=== PATIENT | male | born 1960 | race Hispanic/Latino ===

== ENCOUNTER 2017-11-17 11:06 | Emergency (ER) | payer OTHER, SELFPAY ==
[2017-11-17] MEDS ORDERED: Ondansetron ODT 4 MG TAB ONE (11:54)
[2017-11-17] MEDS ORDERED: Pantoprazole 40 MG VIAL ONE (11:54)
[2017-11-17 12:05] LABS: #Eosinphils 0.1 thou/uL (0.0-0.7); #Monocytes 0.3 thou/uL (0.11-0.59); #Neutrophils 2.5 thou/uL (1.40-6.50); %Basophils 0.1 % (0.0-1.0); %Eosinophils 1.7 % (0.0-10.0); %Lymphocytes 25.3 % (21.0-51.0); %Monocytes 8.5 % (0.0-10.0); %Neutrophils 64.3 % (42.0-75.0); Hemoglobin 14.6 g/dL (14.0-18.0); Mean Corpuscular HGB CONC 33.8 g/dL (32.0-36.0); Mean Corpuscular Hemoglobin 30.9 pg (27.0-31.0); Mean Corpuscular Volume 91.3 fl (80.0-94.0); Mean Platelet Volume 7.6 fL (7.4-10.4); Platelet Count 158 thou/uL (130-400); RBC Distribution Width 11.7 % (11.5-14.5); Red Blood Cell (RBC) Count 4.73 mill/uL (4.70-6.10); White Blood Cell (WBC) Count 3.9 thou/uL (4.8-10.8)
[2017-11-17 12:27] LABS: ALT (SGPT) 33 U/L (8-55); AST (SGOT) 23 U/L (5-34); Alkaline Phosphatase 88 U/L (40-150); Anion Gap 15 mmol/L (10-20); BUN (Urea Nitrogen) 10 mg/dL (8.4-25.7); Bilirubin, Total 0.6 mg/dL (0.2-1.2); Calc. Creatinine Clearance 0 mL/min (70-130); Calcium 9.1 mg/dL (7.8-10.44); Carbon Dioxide 23 mmol/L (22-29); Chloride 99 mmol/L (98-107); Estimated GFR-MDRD Greater than 90; Globulin 3.6 g/dL (2.4-3.5); Glucose 351 mg/dL (70-105); Lipase 20 U/L (8-78); Potassium 4.1 mmol/L (3.5-5.1); Protein, Total 7.6 g/dL (6.0-8.3); Sodium 133 mmol/L (136-145)
[2017-11-17 12:31] LABS: CKMB 1.6 ng/mL (0-6.6); Troponin I Less than 0.010 ng/mL (< 0.028)
--- NOTE | 2017-11-17 12:34 | RAD ---
ACUTE ABDOMINAL SERIES: INDICATIONS: Nausea and vomiting for a few days with neck pain. FINDINGS: The lungs are clear. The cardiomediastinal silhouette is normal. The bowel gas pattern is unobstruc yudi. Cholecystectomy clips are seen within the right upper quadrant. There is scattered degenerativ e and osteoarthritic change. IMPRESSION: No acute abnormality. POS: [facility]
[2017-11-17 12:51] LABS: Bilirubin Negative (Negative); Blood, Urine Negative (Negative); Clarity CLEAR (Clear); Glucose, Urine (Dipstick) >=1000 mg/dL (Negative); Leukocyte Negative (Negative); Nitrite Negative (Negative); Protein, Urine (Dipstick) Negative (Neg-Trace); Specific Gravity, Urine 1.022 (1.002-1.036); Urobilinogen 0.2 mg/dL (0.2-1.0); pH, Urine 6.5 (5.0-9.0)
[2017-11-17] MEDS ORDERED: Insulin Regular 300 UNITS/3 ML VIAL ONE (13:07)
== END 2017-11-17 13:35 | disposition home or self-care (01) ==
LOC: ERS 11:06
DX: E11.65 Type 2 diabetes mellitus with hyperglycemia (principal); I25.2 Old myocardial infarction; E78.5 Hyperlipidemia, unspecified; I10 Essential (primary) hypertension
CPT/HCPCS: 36415; 36416; 74022; 80053; 81003; 82553; 83690; 84484; 85025; 87086; 96361; 96372; 96374; C9113; J1815; Q0162

== ENCOUNTER 2017-12-14 18:21 | Inpatient (IN) | payer SELFPAY ==
--- NOTE | 2017-12-14 18:58 | RAD ---
CHEST ONE VIEW: 12/14/17 COMPARISON: 11/28/16, 11/17/17. HISTORY: Pain. FINDINGS: Normal cardiac silhouette. The lungs and pleural spaces are clear. No pneumothorax or osseous abnorma lities. IMPRESSION: No acute cardiopulmonary process. POS: [facility]
[2017-12-14] MEDS ORDERED: Ondansetron ODT 8 MG TAB ONE (18:59)
[2017-12-14] MEDS ORDERED: Meclizine HCl 25 MG TAB ONE (18:59)
[2017-12-14 19:03] LABS: #Lymphocytes 0.8 thou/uL (1.20-3.40); #Monocytes 0.2 thou/uL (0.11-0.59); #Neutrophils 7.6 thou/uL (1.40-6.50); %Basophils 0.1 % (0.0-1.0); %Eosinophils 0.2 % (0.0-10.0); %Lymphocytes 9.5 % (21.0-51.0); %Monocytes 2.7 % (0.0-10.0); %Neutrophils 87.4 % (42.0-75.0); Mean Corpuscular HGB CONC 34.4 g/dL (32.0-36.0); Mean Corpuscular Hemoglobin 30.7 pg (27.0-31.0); Mean Corpuscular Volume 89.3 fl (80.0-94.0); Platelet Count 225 thou/uL (130-400); RBC Distribution Width 11.5 % (11.5-14.5); Red Blood Cell (RBC) Count 5.19 mill/uL (4.70-6.10); White Blood Cell (WBC) Count 8.7 thou/uL (4.8-10.8)
[2017-12-14 19:25] LABS: ALT (SGPT) 26 U/L (8-55); AST (SGOT) 18 U/L (5-34); Albumin 4.3 g/dL (3.5-5.0); Alkaline Phosphatase 104 U/L (40-150); Anion Gap 23 mmol/L (10-20); BUN (Urea Nitrogen) 9 mg/dL (8.4-25.7); Bilirubin, Total 0.7 mg/dL (0.2-1.2); CK (CPK) 58 U/L (30-200); Calc. Creatinine Clearance 0 mL/min (70-130); Calcium 9.7 mg/dL (7.8-10.44); Carbon Dioxide 21 mmol/L (22-29); Chloride 96 mmol/L (98-107); Estimated GFR-MDRD 84; Glucose 411 mg/dL (70-105); Lipase 15 U/L (8-78); Potassium 4.1 mmol/L (3.5-5.1); Protein, Total 8.3 g/dL (6.0-8.3); Sodium 136 mmol/L (136-145)
[2017-12-14 19:29] LABS: CKMB 1.5 ng/mL (0-6.6); Troponin I Less than 0.010 ng/mL (< 0.028)
[2017-12-14] MEDS ORDERED: Multivitamins, Adult 10 ML, Thiamine HCl 100 MG, Folic Acid 1 MG in Dextrose 5 %-0.45 %... IV ONE (19:45)
[2017-12-14 20:33] LABS: Base Excess-Venous -2.7 mmol/L (0 (+/- 2.5)); Bicarbonate (HCO3v) 20.4 mmol/L (1.0-85.0); CO2 Tension (PvCO2) 31.2 mmHg (41.0-51.0); Calcium, Ionized 0.99 mmol/L (1.12-1.32); Hemoglobin - Calc 17.5 g/dL (12.0-18.0); O2 Tension (PvO2) 61.9 mmHg (35.0-45.0); Potassium 4.7 mmol/L (3.4-4.7); T. Carbon Dioxide 21.4 mmol/L (1.0-85.0); pH (Venous) 7.424 (7.35-7.45); vO2 Saturation-calc 92.2 % (94-98)
[2017-12-14 20:47] LABS: Bilirubin Negative (Negative); Blood, Urine Negative (Negative); Clarity CLEAR (Clear); Glucose, Urine (Dipstick) >=1000 mg/dL (Negative); Leukocyte Negative (Negative); Nitrite Negative (Negative); Protein, Urine (Dipstick) Trace mg/dL (Neg-Trace); Specific Gravity, Urine 1.023 (1.002-1.036); Urobilinogen 0.2 mg/dL (0.2-1.0); pH, Urine 6.5 (5.0-9.0)
[2017-12-14 22:29] VITALS: BMI 29.3
[2017-12-15] MEDS ORDERED: Ondansetron HCl/PF 4 MG/2 ML Vial IVP PRN (01:55)
[2017-12-15] MEDS ORDERED: Bisacodyl 10 MG SUPP PR PRN (01:55)
[2017-12-15] MEDS ORDERED: Bisacodyl 5 MG TAB PO PRN (01:55)
[2017-12-15] MEDS ORDERED: Dextrose 5% in Water 1,000 ML IV PRN (01:55)
[2017-12-15] MEDS ORDERED: Dextrose 50% Abboject 50 ML SYRINGE SLOW IVP PRN (01:55)
[2017-12-15] MEDS ORDERED: Senokot 8.6 MG TAB PO PRN (01:55)
[2017-12-15] MEDS ORDERED: Sodium Chloride 0.9% 500 ML IV SCH (02:30)
[2017-12-15 02:48] LABS: Cardiac Risk 4.2 (Less than 4.5)
[2017-12-15 02:57] LABS: Hemoglobin A1c 10.9 % (4.0-6.0)
[2017-12-15 02:59] LABS: ALT (SGPT) 23 U/L (8-55); AST (SGOT) 15 U/L (5-34); Albumin 4.1 g/dL (3.5-5.0); Alkaline Phosphatase 96 U/L (40-150); Anion Gap 24 mmol/L (10-20); BUN (Urea Nitrogen) 11 mg/dL (8.4-25.7); Bilirubin, Total 0.6 mg/dL (0.2-1.2); Calc. Creatinine Clearance 98 mL/min (70-130); Calcium 9.5 mg/dL (7.8-10.44); Carbon Dioxide 17 mmol/L (22-29); Chloride 96 mmol/L (98-107); Estimated GFR-MDRD 78; Globulin 3.8 g/dL (2.4-3.5); Glucose 432 mg/dL (70-105); Potassium 4.1 mmol/L (3.5-5.1); Protein, Total 7.9 g/dL (6.0-8.3); Sodium 133 mmol/L (136-145)
[2017-12-15 03:04] LABS: Troponin I 0.013 ng/mL (< 0.028)
[2017-12-15] MEDS: HumaLOG 300 UNITS/3 ML VIAL SC PRN ×2 (03:27→06:05)
--- NOTE | 2017-12-15 04:56 | HP ---
CHIEF COMPLAINT: Dizziness. HISTORY OF PRESENT ILLNESS: This is a 57-year-old male with a known history of medical noncompliance for his type 2 diabetes, hypertension, history of prior coronary artery disease with 2-stent placeme nt, active alcohol use and abuse, who presents with a chief complaint of dizziness and headache. Thi s was accompanied by transient chest pain which is currently resolved. With headache and dizziness, the patient endorses also nausea and vomiting over the last 1-2 days. The patient states his last al coholic drink was yesterday morning and he was unable to drink any further secondary to nausea and vo miting. At the time of my evaluation, the patient states he still has a bit of the headache and dizziness, al though it is subjectively better than before. He wants to know if he can have a little bit more wate r to drink. REVIEW OF SYSTEMS: As per HPI. Constitutional: The patient denies any recent fevers or chills. De nies any significant weight loss or gain. HEENT: Headache with dizziness as noted above. Cardiovas cular: No overt chest pain, chest pressure or sensation of palpitations, left-sided arm numbness or tingling that is actively ongoing. The patient endorses a sensation of chest pressure that occurred earlier in the day, but which is currently resolved. Gastrointestinal: Nausea and vomiting as above . No issues with constipation or diarrhea. The patient endorses having some epigastric pain as well with nausea and vomiting episodes. Genitourinary: No new dysuria or changes in urinary frequency, quality or quantity. Musculoskeletal: No new myalgias or arthralgias. Remainder of the review of s ystems otherwise negative. PAST MEDICAL HISTORY: As per above, significant for; 1. Type 2 diabetes, medically noncompliant. 2. Hypertension, medically noncompliant. 3. History of coronary artery disease, status post PCI with stents x2, medically noncompliant. 4. Active alcohol use, 10 drinks a day. 5. History of cocaine use. PAST SURGICAL HISTORY: Status post cholecystectomy. HOME MEDICATIONS: None as the patient does not take any and he does not follow up with his primary c are provider. FAMILY HISTORY: The patient does not give any family history of cardiovascular disease or stroke or hypertension. SOCIAL HISTORY: As noted above, significant alcohol use, last drink earlier today. The patient alberto es any known history of alcohol related seizures. Prior history of cocaine use, which the patient de nies any active illicit drug use or any tobacco use at this point in time. PHYSICAL EXAMINATION: GENERAL: The patient is awake. He is conversant. He is able to converse in [place]; however, has d ifficulty with advanced terminology. I would say that he has basic conversational [place] only. HEENT: Normocephalic, atraumatic, slightly dry mucous membranes. Equal ocular motions are intact. CARDIOVASCULAR: S1, S2. Soft heart tones. EXTREMITIES: Pulses 2+ bilateral upper extremities, no pitting pedal edema. RESPIRATORY: Reasonable air movement. No wheezes, rales, or rhonchi. No conversational dyspnea. ABDOMEN: Positive bowel sounds, soft, nontender to palpation. MUSCULOSKELETAL: Moving all 4 extremities. LABORATORY DATA AND IMAGING: On 12/14/2017, chest x-ray: Impression: "No acute cardiopulmonary pro cess." WBC 8.7, hemoglobin 16.0, hematocrit 46.4, platelets 225,000. VBG: PH 7.42, pCO2 of 31.2, p O2 of 61.9. Chemistry: Sodium 136, potassium 4.1, chloride 96, bicarbonate 21, BUN 9, creatinine 0. 92, glucose 346, calcium 9.7, phosphorus 4.0, magnesium 2.0, total bilirubin 0.7, AST 18, ALT 16, alk olive phosphatase 104, creatinine kinase 58, troponin less than 0.01. Total protein 8.3, albumin 4.3 , lipase of 15. UA significant for glucose greater than 1000, ketones of 40. Beta hydroxybutyrate o f 5.35. ASSESSMENT AND PLAN: 1. Headache and dizziness in the setting of uncontrolled blood pressure in the emergency department with a high systolic over 200. Currently, systolics are in the 170s to 180s. Hydralazine p.r.n. but in the meantime, the patient has a known history of hypertension and cardiovascular disease which is untreated, so will initiate the patient on lisinopril and carvedilol. Closely monitor his blood pre ssure, reaction secondary to this regimen. 2. Type 2 diabetes, uncontrolled with hyperglycemia, question of a possibility of diabetic ketoacido sis and IV fluid bolus now. Close monitoring of the patient's respiratory status. Secondary unknown EF with a known history of cardiovascular disease, placing the patient at higher risk for pulmonary edema. Insulin regimen sliding scale with the basal dosing weight based as needed. Closely monitor if the patient fails to respond and clear his ketones and close his anion gap and will have a low thr eshold to transition to an IV insulin drip and transferred to the IMCU if needed. 3. History of alcohol use, placed on withdrawal protocol. The patient is at high risk for withdrawa l. 4. Prior history of polysubstance abuse. Check a urine drug screen as well. 5. Diet: N.p.o. for now. Okay for fluid sips of water. 6. Deep venous thrombosis prophylaxis with enoxaparin. 7. Admit the patient inpatient.
[2017-12-15] MEDS: Sodium Chloride 0.9% 1,000 ML IV SCH ×3 (05:08→21:36)
[2017-12-15] MEDS: Acetaminophen 325 MG TAB PO PRN (05:50)
[2017-12-15] MEDS: Carvedilol 3.125 MG TAB PO SCH ×2 (07:56→16:54)
[2017-12-15] MEDS: Lisinopril 5 MG TAB PO SCH (07:56)
[2017-12-15] MEDS: Enoxaparin Sodium 30 MG/0.3 ML SYRINGE SC SCH (07:56)
[2017-12-15] MEDS: Famotidine/PF 20 mg/2ml Vial SLOW IVP SCH ×2 (07:59→21:02)
[2017-12-15] MEDS ORDERED: Promethazine HCl 25 MG/ML VIAL SLOW IVP PRN (13:33)
--- NOTE | 2017-12-15 14:59 | PDOC.PN ---
- Subjective Encounter Start Date: 12/15/17 Encounter Start Time: 08:25 -: old records requested/rev Pt seen and examined, chart reviewed in its entirety, this is my first visit with this patient No F/c, no N/V/D/C, no acute events All systems reviewed and neg x as per HPI - Objective Resuscitation Status: Resuscitation Status FULL:Full Resuscitation MAR Reviewed: Yes Vital Signs & Weight: Vital Signs (12 hours) Temp Pulse Resp BP BP Pulse Ox 12/15/17 11:53 98.2 F 78 16 128/64 97 12/15/17 08:00 98.1 F 86 16 120/66 96 12/15/17 07:56 92 12/15/17 07:27 98.2 F 92 18 12/15/17 03:37 161/76 H 12/15/17 03:25 98.2 F 92 18 161/76 H 97 Weight Admit Weight 187 lb 6 oz Weight 187 lb 6 oz I&O: 12/14/17 12/15/17 12/16/17 06:59 06:59 06:59 Intake Total 854 Output Total 850 Balance 4 Result Diagrams: 12/14/17 18:52 12/15/17 02:12 Additional Labs: Accuchecks 12/15/17 12/15/17 12/15/17 12:23 09:38 06:00 POC Glucose 213 H 238 H 294 H 12/14/17 23:08 POC Glucose 410 H Radiology Reviewed by me: Yes EKG Reviewed by me: Yes Phys Exam - Physical Examination Constitutional: NAD HEENT: PERRLA, moist MMs, sclera anicteric, oral pharynx no lesions Neck: no nodes, no JVD, supple, full ROM Respiratory: no wheezing, no rales, no rhonchi, clear to auscultation bilateral Cardiovascular: RRR, no significant murmur, no rub Gastrointestinal: soft, non-tender, no distention, positive bowel sounds Musculoskeletal: no edema, pulses present Neurological: non-focal, normal sensation, moves all 4 limbs Lymphatic: no nodes Skin: no rash, normal turgor, cap refill <2 seconds Dx/Plan (1) Alcohol intoxication Status: Acute Qualifiers: Complication of substance-induced condition: uncomplicated (2) Dehydration Code(s): E86.0 - DEHYDRATION Status: Acute (3) Hyponatremia Code(s): E87.1 - HYPO-OSMOLALITY AND HYPONATREMIA Status: Acute (4) CAD (coronary artery disease) Code(s): I25.10 - ATHSCL HEART DISEASE OF [place] CORONARY ARTERY W/O ANG PCTRS Status: Chronic Qualifiers: Coronary Disease-Associated Artery/Lesion type: [place] artery [place] vs. transplanted heart: [place] heart Associated angina: without angina Qualified Code(s): I25.10 - Atherosclerotic heart disease of [place] coronary artery without angina pectoris (5) DM type 2 (diabetes mellitus, type 2) Status: Chronic Qualifiers: Diabetes mellitus senior human resources representative insulin use: without senior human resources representative use Diabetes mellitus complication status: with hyperglycemia Qualified Code(s): E11.65 - Type 2 diabetes mellitus with hyperglycemia (6) Dyslipidemia Code(s): E78.5 - HYPERLIPIDEMIA, UNSPECIFIED Status: Chronic (7) HTN (hypertension) Code(s): I10 - ESSENTIAL (PRIMARY) HYPERTENSION Status: Chronic Qualifiers: Hypertension type: essential hypertension Qualified Code(s): I10 - Essential (primary) hypertension - Plan cont current plan of care, 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
[2017-12-15] MEDS: Atorvastatin Calcium 10 MG TAB PO SCH (20:47)
[2017-12-16 04:55] LABS: #Lymphocytes 1.9 thou/uL (1.20-3.40); #Monocytes 0.4 thou/uL (0.11-0.59); #Neutrophils 3.4 thou/uL (1.40-6.50); %Basophils 0.4 % (0.0-1.0); %Eosinophils 0.8 % (0.0-10.0); %Lymphocytes 33.4 % (21.0-51.0); %Monocytes 7.2 % (0.0-10.0); %Neutrophils 58.2 % (42.0-75.0); Hemoglobin 14.1 g/dL (14.0-18.0); Mean Corpuscular Hemoglobin 30.6 pg (27.0-31.0); Mean Corpuscular Volume 90.1 fl (80.0-94.0); Mean Platelet Volume 6.9 fL (7.4-10.4); Platelet Count 184 thou/uL (130-400); RBC Distribution Width 11.6 % (11.5-14.5); Red Blood Cell (RBC) Count 4.59 mill/uL (4.70-6.10); White Blood Cell (WBC) Count 5.8 thou/uL (4.8-10.8)
[2017-12-16 05:14] LABS: ALT (SGPT) 17 U/L (8-55); AST (SGOT) 15 U/L (5-34); Albumin 3.4 g/dL (3.5-5.0); Alkaline Phosphatase 73 U/L (40-150); Anion Gap 15 mmol/L (10-20); BUN (Urea Nitrogen) 11 mg/dL (8.4-25.7); Bilirubin, Total 0.7 mg/dL (0.2-1.2); Calc. Creatinine Clearance 109 mL/min (70-130); Calcium 8.8 mg/dL (7.8-10.44); Carbon Dioxide 21 mmol/L (22-29); Chloride 105 mmol/L (98-107); Estimated GFR-MDRD 89; Globulin 3.1 g/dL (2.4-3.5); Glucose 249 mg/dL (70-105); Magnesium 1.9 mg/dL (1.6-2.6); Potassium 3.7 mmol/L (3.5-5.1); Protein, Total 6.5 g/dL (6.0-8.3); Sodium 137 mmol/L (136-145)
[2017-12-16] MEDS: Lisinopril 5 MG TAB PO SCH (08:16)
[2017-12-16] MEDS: Carvedilol 3.125 MG TAB PO SCH (08:17)
[2017-12-16] MEDS: Enoxaparin Sodium 30 MG/0.3 ML SYRINGE SC SCH (08:17)
[2017-12-16] MEDS: Famotidine/PF 20 mg/2ml Vial SLOW IVP SCH ×2 (09:56→20:05)
[2017-12-16] MEDS: Sodium Chloride 0.9% 1,000 ML IV SCH ×2 (09:57→17:13)
[2017-12-16] MEDS: hydrALAZINE 20 MG/ML VIAL SLOW IVP PRN (11:34)
[2017-12-16] MEDS: HumaLOG 300 UNITS/3 ML VIAL SC PRN ×2 (11:36→17:16)
[2017-12-16] MEDS: Acetaminophen 325 MG TAB PO PRN ×2 (11:39→18:50)
[2017-12-16] MEDS: Ondansetron ODT 4 MG TAB PO PRN ×2 (13:04→20:05)
--- NOTE | 2017-12-16 14:08 | PDOC.PN ---
- Subjective Encounter Start Date: 12/16/17 Encounter Start Time: 09:50 pT C/O HEADACE AND OR DIZZINESS THUIS am NO f/c,NO d/c, NO cp OR SOB ALLSYSTESM REVIEWED AND NEG X ABOVE. PT STATES HE DOESNT FEEL WELL ENOUGH TO GO HOME - Objective Resuscitation Status: Resuscitation Status FULL:Full Resuscitation MAR Reviewed: Yes Vital Signs & Weight: Vital Signs (12 hours) Temp Pulse Resp BP BP BP Pulse Ox 12/16/17 12:31 149/87 H 12/16/17 12:00 186/105 H 12/16/17 11:34 83 186/105 H 12/16/17 11:25 83 16 186/105 H 95 12/16/17 08:16 80 160/90 H 12/16/17 08:00 98.4 F 80 16 160/90 H 160/90 H 96 12/16/17 04:00 98.0 F 81 20 153/89 H 95 Weight Admit Weight 187 lb 6 oz Weight 187 lb 6 oz I&O: 12/15/17 12/16/17 12/17/17 06:59 06:59 06:59 Intake Total 854 Output Total 850 Balance 4 Result Diagrams: 12/16/17 04:34 12/16/17 04:34 Additional Labs: Accuchecks 12/16/17 12/16/17 12/15/17 11:26 00:31 19:47 POC Glucose 209 H 232 H 242 H 12/15/17 16:23 POC Glucose 230 H Phys Exam - Physical Examination Constitutional: NAD HEENT: PERRLA, moist MMs, sclera anicteric, oral pharynx no lesions Neck: no nodes, no JVD, supple, full ROM Respiratory: no wheezing, no rales, no rhonchi, clear to auscultation bilateral Cardiovascular: RRR, no significant murmur, no rub Gastrointestinal: soft, non-tender, no distention, positive bowel sounds Musculoskeletal: no edema, pulses present Dx/Plan (1) Alcohol intoxication Status: Resolved Qualifiers: Complication of substance-induced condition: uncomplicated (2) Dehydration Code(s): E86.0 - DEHYDRATION Status: Resolved (3) Hyponatremia Code(s): E87.1 - HYPO-OSMOLALITY AND HYPONATREMIA Status: Resolved (4) CAD (coronary artery disease) Code(s): I25.10 - ATHSCL HEART DISEASE OF [place] CORONARY ARTERY W/O ANG PCTRS Status: Chronic Qualifiers: Coronary Disease-Associated Artery/Lesion type: [place] artery [place] vs. transplanted heart: [place] heart Associated angina: without angina Qualified Code(s): I25.10 - Atherosclerotic heart disease of [place] coronary artery without angina pectoris (5) DM type 2 (diabetes mellitus, type 2) Status: Chronic Qualifiers: Diabetes mellitus detention insulin use: without termite technician use Diabetes mellitus complication status: with hyperglycemia Qualified Code(s): E11.65 - Type 2 diabetes mellitus with hyperglycemia (6) Dyslipidemia Code(s): E78.5 - HYPERLIPIDEMIA, UNSPECIFIED Status: Chronic (7) HTN (hypertension) Code(s): I10 - ESSENTIAL (PRIMARY) HYPERTENSION Status: Chronic Qualifiers: Hypertension type: essential hypertension Qualified Code(s): I10 - Essential (primary) hypertension - Plan * . INCREASE cOREG, ADD IN MECLIZINE,. SCHEDULE REGLAN FOR NOW. WATCH FOR SIGNS OF WITHDRAWL
[2017-12-16] MEDS ORDERED: Metoclopramide HCl 10 MG TAB PO SCH (14:30)
[2017-12-16] MEDS ORDERED: Carvedilol 3.125 MG TAB PO SCH (14:30)
[2017-12-16] MEDS: Meclizine HCl 25 MG TAB PO PRN ×2 (14:31→22:01)
[2017-12-16] MEDS: Carvedilol 6.25 MG TAB PO SCH (17:14)
[2017-12-16] MEDS: Metoclopramide HCl 10 MG TAB PO SCH ×2 (17:14→20:05)
[2017-12-16] MEDS: Atorvastatin Calcium 10 MG TAB PO SCH (20:05)
[2017-12-17] MEDS: Sodium Chloride 0.9% 1,000 ML IV SCH (03:14)
[2017-12-17 04:47] LABS: #Eosinphils 0.1 thou/uL (0.0-0.7); #Monocytes 0.4 thou/uL (0.11-0.59); #Neutrophils 2.6 thou/uL (1.40-6.50); %Basophils 0.5 % (0.0-1.0); %Eosinophils 1.3 % (0.0-10.0); %Lymphocytes 39.4 % (21.0-51.0); %Monocytes 7.3 % (0.0-10.0); %Neutrophils 51.5 % (42.0-75.0); Hemoglobin 13.9 g/dL (14.0-18.0); Mean Corpuscular HGB CONC 34.6 g/dL (32.0-36.0); Mean Corpuscular Hemoglobin 30.9 pg (27.0-31.0); Mean Corpuscular Volume 89.4 fl (80.0-94.0); Mean Platelet Volume 7.1 fL (7.4-10.4); Platelet Count 173 thou/uL (130-400); RBC Distribution Width 11.4 % (11.5-14.5); White Blood Cell (WBC) Count 5.1 thou/uL (4.8-10.8)
[2017-12-17 05:06] LABS: ALT (SGPT) 17 U/L (8-55); AST (SGOT) 17 U/L (5-34); Albumin 3.4 g/dL (3.5-5.0); Alkaline Phosphatase 78 U/L (40-150); Anion Gap 15 mmol/L (10-20); BUN (Urea Nitrogen) 10 mg/dL (8.4-25.7); Bilirubin, Total 0.7 mg/dL (0.2-1.2); Calc. Creatinine Clearance 110 mL/min (70-130); Calcium 8.6 mg/dL (7.8-10.44); Carbon Dioxide 21 mmol/L (22-29); Chloride 103 mmol/L (98-107); Estimated GFR-MDRD 90; Globulin 3.1 g/dL (2.4-3.5); Glucose 245 mg/dL (70-105); Magnesium 1.8 mg/dL (1.6-2.6); Potassium 3.5 mmol/L (3.5-5.1); Protein, Total 6.5 g/dL (6.0-8.3); Sodium 135 mmol/L (136-145)
[2017-12-17] MEDS: HumaLOG 300 UNITS/3 ML VIAL SC PRN ×4 (05:59→22:01)
[2017-12-17] MEDS: Metoclopramide HCl 10 MG TAB PO SCH ×2 (08:13→11:35)
[2017-12-17] MEDS: Enoxaparin Sodium 30 MG/0.3 ML SYRINGE SC SCH (08:14)
[2017-12-17] MEDS: Carvedilol 6.25 MG TAB PO SCH ×2 (08:14→16:39)
[2017-12-17] MEDS: Lisinopril 5 MG TAB PO SCH ×2 (08:14→20:10)
[2017-12-17] MEDS: Famotidine/PF 20 mg/2ml Vial SLOW IVP SCH ×2 (08:15→20:11)
[2017-12-17] MEDS: hydrALAZINE 20 MG/ML VIAL SLOW IVP PRN (11:36)
[2017-12-17] MEDS ORDERED: NIFEdipine XL 30 MG TAB PO SCH (12:15)
[2017-12-17] MEDS ORDERED: Lorazepam 1 MG TAB PO PRN (12:23)
--- NOTE | 2017-12-17 12:23 | PDOC.PN ---
- Subjective Encounter Start Date: 12/17/17 Encounter Start Time: 12:21 Patient seen and examined for DKA/HTN crisis. Gen malaise +, No CP/SOB. No overnight events - Objective Resuscitation Status: Resuscitation Status FULL:Full Resuscitation MAR Reviewed: Yes Vital Signs & Weight: Vital Signs (12 hours) Temp Pulse Resp BP BP Pulse Ox 12/17/17 11:36 89 182/105 H 12/17/17 11:00 99.4 F 89 18 182/105 H 96 12/17/17 10:12 99.5 F 87 16 96 12/17/17 08:14 87 164/90 H 12/17/17 08:00 164/90 H 12/17/17 07:52 99.5 F 87 16 164/90 H 96 12/17/17 04:02 175/97 H 12/17/17 04:00 99.0 F 84 20 175/97 H 96 Weight Admit Weight 187 lb 6 oz Weight 187 lb 6.004 oz I&O: 12/16/17 12/17/17 12/18/17 06:59 06:59 06:59 Intake Total 2002 Output Total 2930 Balance -928 Result Diagrams: 12/17/17 04:14 12/17/17 04:14 Additional Labs: Accuchecks 12/17/17 12/16/17 12/16/17 04:40 21:46 16:16 POC Glucose 218 H 218 H 281 H Phys Exam - Physical Examination Constitutional: NAD Respiratory: no wheezing, no rhonchi Cardiovascular: RRR, no rub Gastrointestinal: soft, non-tender, positive bowel sounds Musculoskeletal: no edema Neurological: moves all 4 limbs Dx/Plan (1) Hypertensive urgency Code(s): I16.0 - HYPERTENSIVE URGENCY Status: Acute Comment: BP uncontrolled. (2) DM type 2 (diabetes mellitus, type 2) Status: Chronic Qualifiers: Chronic kidney disease stage: stage 2 (mild) Comment: Does not take any med at home, uncontrolled. (3) Alcohol withdrawal Code(s): F10.239 - ALCOHOL DEPENDENCE WITH WITHDRAWAL, UNSPECIFIED Status: Acute Qualifiers: Complication of substance-induced condition: uncomplicated Qualified Code(s ): F10.230 - Alcohol dependence with withdrawal, uncomplicated Comment: uncontrolled. (4) DKA (diabetic ketoacidoses) Code(s): E13.10 - OTH DIABETES MELLITUS WITH KETOACIDOSIS WITHOUT COMA Status : Resolved Qualifiers: Diabetes mellitus type: type 2 - Plan DVT proph w/SCDs Change Coreg to 12.5 mg BID, Change Lisinopril to 5 mg BID -: Procardia XL 30 mg PO x 1 -: Add alcohol withdrawal protocol with Ativan -: Change sliding scale to mild with bedtime scale, Add Glipizide -: DC Reglan, AM labs, DC IVF Review of Systems - Review of Systems Constitutional: negative: fever, chills, sweats, weakness, malaise, other Respiratory: negative: Cough, Dry, Shortness of Breath, Hemoptysis, SOB with Excertion, Pleuritic Pain, Sputum, Wheezing Cardiovascular: negative: chest pain, palpitations, orthopnea, paroxysmal nocturnal dyspnea, edema, light headedness, other - Medications/Allergies Allergies/Adverse Reactions: Allergies Allergy/AdvReac Type Severity Reaction Status Date / Time No Known Allergies Allergy Verified 12/14/17 22:32 Medications: Current Medications Acetaminophen (Tylenol) 650 mg PO Q8H PRN PRN Reason: Pain 1-3 Last Admin: 12/16/17 18:50 Dose: 650 mg Aspirin (Aspirin Chewable) 81 mg PO DAILY [facility] Last Admin: 12/17/17 08:14 Dose: 81 mg Atorvastatin Calcium (Lipitor) 10 mg PO [facility] Last Admin: 12/16/17 20:05 Dose: 10 mg Bisacodyl (Dulcolax) 10 mg PO DAILYPRN PRN PRN Reason: Constipation Bisacodyl (Dulcolax) 10 mg NE Q24H PRN PRN Reason: Constipation Carvedilol (Coreg) 12.5 mg PO BID-[facility] Dextrose/Water (Dextrose 50%) 25 gm SLOW IVP PRN PRN PRN Reason: Hypoglycemia Famotidine (Pepcid) 20 mg SLOW IVP Q12HR [facility] Last Admin: 12/17/17 08:15 Dose: 20 mg Glipizide (Glucotrol) 5 mg PO BID-[facility] Glucagon (Glucagon) 1 mg IM PRN PRN PRN Reason: Hypoglycemia Hydralazine HCl (Apresoline) 10 mg SLOW IVP Q4H PRN PRN Reason: Hypertension Last Admin: 12/17/17 11:36 Dose: 10 mg Dextrose/Water (D5w) 1,000 mls @ 0 mls/hr IV .Q0M PRN; As Directed PRN Reason: Hypoglycemia Insulin Human Lispro (Humalog) 0 units SC .MILD SLIDING SCALE PRN PRN Reason: Mild Correctional Scale Insulin Human Lispro (Humalog) 0 units SC .BEDTIME SLIDING SC PRN PRN Reason: Bedtime Correctional Scale Lisinopril (Zestril) 5 mg PO BID [facility] Meclizine HCl (Antivert) 25 mg PO Q8H PRN PRN Reason: Dizziness Last Admin: 12/16/17 22:01 Dose: 25 mg Nifedipine (Procardia Xl) 30 mg PO ONE [facility] Stop: 12/17/17 14:00 Ondansetron HCl (Zofran) 4 mg IVP Q6H PRN PRN Reason: Nausea/Vomiting Ondansetron HCl (Zofran Odt) 4 mg PO Q6H PRN PRN Reason: Nausea/Vomiting Last Admin: 12/16/17 20:05 Dose: 4 mg Promethazine HCl (Phenergan) 12.5 mg SLOW IVP Q4H PRN PRN Reason: Nausea/Vomiting Last Admin: 12/15/17 13:37 Dose: 12.5 mg Senna (Senokot) 2 tab PO HSPRN PRN PRN Reason: Constipation Sodium Chloride (Flush - Normal Saline) 10 ml IVF Q12HR [facility] Last Admin: 12/17/17 08:15 Dose: Not Given Sodium Chloride (Flush - Normal Saline) 10 ml IVF PRN PRN PRN Reason: Saline Flush
[2017-12-17] MEDS: Ondansetron ODT 4 MG TAB PO PRN ×2 (13:00→20:10)
[2017-12-17] MEDS: glipiZIDE 5 MG TAB PO SCH (16:39)
[2017-12-17] MEDS: Meclizine HCl 25 MG TAB PO PRN (20:10)
[2017-12-17] MEDS: Atorvastatin Calcium 10 MG TAB PO SCH (20:10)
[2017-12-18 04:40] LABS: ALT (SGPT) 20 U/L (8-55); AST (SGOT) 22 U/L (5-34); Albumin 3.6 g/dL (3.5-5.0); Alkaline Phosphatase 77 U/L (40-150); Anion Gap 13 mmol/L (10-20); BUN (Urea Nitrogen) 8 mg/dL (8.4-25.7); Bilirubin, Total 0.8 mg/dL (0.2-1.2); Calc. Creatinine Clearance 121 mL/min (70-130); Calcium 9.2 mg/dL (7.8-10.44); Carbon Dioxide 23 mmol/L (22-29); Chloride 102 mmol/L (98-107); Estimated GFR-MDRD Greater than 90; Globulin 3.3 g/dL (2.4-3.5); Glucose 210 mg/dL (70-105); Magnesium 1.8 mg/dL (1.6-2.6); Phosphorus 3.8 mg/dL (2.3-4.7); Potassium 3.4 mmol/L (3.5-5.1); Protein, Total 6.9 g/dL (6.0-8.3); Sodium 135 mmol/L (136-145)
[2017-12-18] MEDS: HumaLOG 300 UNITS/3 ML VIAL SC PRN ×3 (05:39→16:23)
[2017-12-18] MEDS: glipiZIDE 5 MG TAB PO SCH ×2 (08:36→16:18)
[2017-12-18] MEDS: Carvedilol 6.25 MG TAB PO SCH ×2 (08:36→16:18)
[2017-12-18] MEDS: Lisinopril 5 MG TAB PO SCH ×2 (08:37→20:24)
[2017-12-18] MEDS: Meclizine HCl 25 MG TAB PO PRN (08:40)
[2017-12-18] MEDS ORDERED: Potassium Chloride 20 MEQ TAB PO SCH (10:15)
[2017-12-18] MEDS: Famotidine/PF 20 mg/2ml Vial SLOW IVP SCH (11:09)
[2017-12-18] MEDS ORDERED: Fioricet 325/50/40 mg Tablet PO PRN (14:33)
--- NOTE | 2017-12-18 15:31 | CT ---
CT HEAD NONCONTRAST: HISTORY: Headache. Nausea. COMPARISON: 11/28/16. FINDINGS: There is no evidence of acute intracranial hemorrhage. A large wedge-shaped area of decreased densit y within the left cerebellar hemisphere measures up to 4.9 cm diameter and is in the distribution of the left posterior inferior cerebellar artery. Diffuse cortical atrophy and chronic ischemic small-v essel disease are apparent. Visualized paranasal sinuses are well aerated. 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 It has occurred sinc e the 2017 exam. POS: [facility]
[2017-12-18] MEDS: Meclizine HCl 25 MG TAB PO SCH ×2 (16:17→20:24)
[2017-12-18] MEDS: Acetaminophen 325 MG TAB PO SCH ×2 (16:18→20:24)
--- NOTE | 2017-12-18 19:57 | PDOC.PN ---
- Subjective Encounter Start Date: 12/18/17 Encounter Start Time: 13:00 Patient seen and examined for HTN urgency/DKA. Nauseas with Vertigo - worse today - on and off for 5 days. Gets worse on movement. No focal deficits. No overnight events - Objective Resuscitation Status: Resuscitation Status FULL:Full Resuscitation MAR Reviewed: Yes Vital Signs & Weight: Vital Signs (12 hours) Temp Pulse Resp BP BP BP Pulse Ox 12/18/17 16:21 83 18 159/91 H 97 12/18/17 16:18 159/91 H 12/18/17 16:00 159/91 H 12/18/17 12:00 150/86 H 12/18/17 11:27 98.6 F 72 16 150/86 H 97 12/18/17 08:37 80 141/90 H 12/18/17 08:36 141/91 H 12/18/17 08:00 98.8 F 80 18 141/91 H 97 Weight Admit Weight 187 lb 6 oz Weight 187 lb 6.004 oz I&O: 12/17/17 12/18/17 12/19/17 06:59 06:59 06:59 Intake Total 2001 412 1200 Output Total 2930 500 Balance -928 -88 1200 Result Diagrams: 12/17/17 04:14 12/19/17 04:18 Additional Labs: Accuchecks 12/18/17 12/18/17 12/18/17 16:24 11:29 05:40 POC Glucose 211 H 318 H 196 H 12/17/17 21:16 POC Glucose 226 H Phys Exam - Physical Examination In distress due to headache/vertigo Respiratory: no wheezing, no rales, no rhonchi, clear to auscultation bilateral Cardiovascular: RRR, no rub no heaves/pulsations Gastrointestinal: soft, non-tender, no distention, positive bowel sounds Musculoskeletal: no edema Neurological: non-focal, normal sensation, moves all 4 limbs Vertigo worse on head movement Psychiatric: normal affect, A&O x 3 Dx/Plan (1) Headache Code(s): R51 - HEADACHE Status: Acute Qualifiers: Headache chronicity pattern: acute headache Intractability: intractable Comment: with Vertigo ?peripheral (2) Hypertensive urgency Code(s): I16.0 - HYPERTENSIVE URGENCY Status: Acute Comment: BP better controlled. (3) DM type 2 (diabetes mellitus, type 2) Status: Chronic Qualifiers: Chronic kidney disease stage: stage 2 (mild) Comment: Does not take any med at home, better controlled. (4) Alcohol withdrawal Code(s): F10.239 - ALCOHOL DEPENDENCE WITH WITHDRAWAL, UNSPECIFIED Status: Acute Qualifiers: Complication of substance-induced condition: uncomplicated Qualified Code(s ): F10.230 - Alcohol dependence with withdrawal, uncomplicated Comment: on Withdrawal protocol (5) DKA (diabetic ketoacidoses) Code(s): E13.10 - OTH DIABETES MELLITUS WITH KETOACIDOSIS WITHOUT COMA Status : Resolved Qualifiers: Diabetes mellitus type: type 2 - Plan DVT proph w/SCDs CT brain for persistent headache with vertigo - worse today -: Cont Coreg/Lisinopril -: Add Metformin to Glipizide -: BMP in AM -: Add Acetaminophen schedule with Meclizine Review of Systems - Review of Systems Respiratory: negative: Cough, Dry, Shortness of Breath, Hemoptysis, SOB with Excertion, Pleuritic Pain, Sputum, Wheezing Cardiovascular: negative: chest pain, palpitations, orthopnea, paroxysmal nocturnal dyspnea, edema, light headedness, other - Medications/Allergies Allergies/Adverse Reactions: Allergies Allergy/AdvReac Type Severity Reaction Status Date / Time No Known Allergies Allergy Verified 12/14/17 22:32 Medications: Current Medications Acetaminophen (Tylenol) 650 mg PO Q8H PRN PRN Reason: Pain 1-3 Last Admin: 12/16/17 18:50 Dose: 650 mg Acetaminophen (Tylenol) 650 mg PO TID [facility] Last Admin: 12/18/17 16:18 Dose: 650 mg Acetaminophen/Butalbital/Caffeine (Fioricet) 1 tab PO Q4H PRN PRN Reason: Headache Stop: 12/23/17 14:34 Aspirin (Aspirin Chewable) 81 mg PO DAILY [facility] Last Admin: 12/18/17 08:38 Dose: 81 mg Atorvastatin Calcium (Lipitor) 10 mg PO HS [facility] Last Admin: 12/17/17 20:10 Dose: 10 mg Bisacodyl (Dulcolax) 10 mg PO DAILYPRN PRN PRN Reason: Constipation Bisacodyl (Dulcolax) 10 mg [place] Q24H PRN PRN Reason: Constipation Carvedilol (Coreg) 12.5 mg PO BID-[facility] Last Admin: 12/18/17 16:18 Dose: 12.5 mg Cyanocobalamin (Vitamin B-12) 1,000 mcg PO HS [facility] Dextrose/Water (Dextrose 50%) 25 gm SLOW IVP PRN PRN PRN Reason: Hypoglycemia Famotidine (Pepcid) 20 mg PO BID [facility] Folic Acid (Folvite) 1 mg PO DAILY [facility] Glipizide (Glucotrol) 5 mg PO BID-[facility] Last Admin: 12/18/17 16:18 Dose: 5 mg Glucagon (Glucagon) 1 mg IM PRN PRN PRN Reason: Hypoglycemia Hydralazine HCl (Apresoline) 10 mg SLOW IVP Q4H PRN PRN Reason: Hypertension Last Admin: 12/17/17 11:36 Dose: 10 mg Dextrose/Water (D5w) 1,000 mls @ 0 mls/hr IV .Q0M PRN; As Directed PRN Reason: Hypoglycemia Insulin Human Lispro (Humalog) 0 units SC .MILD SLIDING SCALE PRN PRN Reason: Mild Correctional Scale Last Admin: 12/18/17 16:23 Dose: 2 unit Insulin Human Lispro (Humalog) 0 units SC .BEDTIME SLIDING SC PRN PRN Reason: Bedtime Correctional Scale Last Admin: 12/17/17 22:01 Dose: 2 unit Lisinopril (Zestril) 5 mg PO BID [facility] Lorazepam (Ativan) 1 mg PO Q4H PRN PRN Reason: ASE >=9 Meclizine HCl (Antivert) 25 mg PO Q8H PRN PRN Reason: Dizziness Last Admin: 12/18/17 08:40 Dose: 25 mg Meclizine HCl (Antivert) 25 mg PO TID [facility] Last Admin: 12/18/17 16:17 Dose: 25 mg Metformin HCl (Glucophage) 500 mg PO QAM-[facility] Multivitamins (Theragran) 1 tab PO HS [facility] Ondansetron HCl (Zofran) 4 mg IVP Q6H PRN PRN Reason: Nausea/Vomiting Ondansetron HCl (Zofran Odt) 4 mg PO Q6H PRN PRN Reason: Nausea/Vomiting Last Admin: 12/17/17 20:10 Dose: 4 mg Promethazine HCl (Phenergan) 12.5 mg SLOW IVP Q4H PRN PRN Reason: Nausea/Vomiting Last Admin: 12/15/17 13:37 Dose: 12.5 mg Pyridoxine HCl (Vitamin B 6) 50 mg PO HS [facility] Senna (Senokot) 2 tab PO HSPRN PRN PRN Reason: Constipation Sodium Chloride (Flush - Normal Saline) 10 ml IVF Q12HR [facility] Last Admin: 12/18/17 08:37 Dose: 10 ml Sodium Chloride (Flush - Normal Saline) 10 ml IVF PRN PRN PRN Reason: Saline Flush Thiamine HCl (Thiamine) 100 mg PO DAILY [facility]
[2017-12-18] MEDS: pyridOXINE 50 MG (B6) TAB PO SCH (20:23)
[2017-12-18] MEDS: Famotidine 20 MG TAB PO SCH (20:23)
[2017-12-18] MEDS: Cyanocobalamin (Vitamin B-12) 1,000 MCG TAB PO SCH (20:24)
[2017-12-18] MEDS: Atorvastatin Calcium 10 MG TAB PO SCH (20:24)
[2017-12-18] MEDS: Multivit, Therapeutic 1 TAB PO SCH (20:25)
[2017-12-19 05:12] LABS: Anion Gap 14 mmol/L (10-20); BUN (Urea Nitrogen) 12 mg/dL (8.4-25.7); Calc. Creatinine Clearance 110 mL/min (70-130); Calcium 9.5 mg/dL (7.8-10.44); Carbon Dioxide 22 mmol/L (22-29); Chloride 103 mmol/L (98-107); Estimated GFR-MDRD 90; Glucose 228 mg/dL (70-105); Potassium 3.6 mmol/L (3.5-5.1); Sodium 135 mmol/L (136-145)
[2017-12-19] MEDS: HumaLOG 300 UNITS/3 ML VIAL SC PRN ×4 (05:57→20:21)
[2017-12-19] MEDS ORDERED: metFORMIN 500 MG TAB PO SCH (08:00)
[2017-12-19] MEDS: Carvedilol 6.25 MG TAB PO SCH ×2 (08:49→16:42)
[2017-12-19] MEDS: Acetaminophen 325 MG TAB PO SCH ×3 (08:49→20:11)
[2017-12-19] MEDS: glipiZIDE 5 MG TAB PO SCH ×2 (08:49→16:42)
[2017-12-19] MEDS: Folic Acid 1 MG TAB PO SCH (08:50)
[2017-12-19] MEDS: Lisinopril 5 MG TAB PO SCH ×2 (08:50→20:12)
[2017-12-19] MEDS: Famotidine 20 MG TAB PO SCH ×2 (08:50→20:12)
[2017-12-19] MEDS: Meclizine HCl 25 MG TAB PO SCH ×3 (10:14→20:12)
[2017-12-19] MEDS ORDERED: cloNIDine 0.1 MG TAB PO PRN (13:47)
[2017-12-19] MEDS ORDERED: Amlodipine 5 MG TAB PO PRN (13:48)
[2017-12-19] MEDS: Atorvastatin Calcium 10 MG TAB PO SCH (20:12)
[2017-12-19] MEDS: pyridOXINE 50 MG (B6) TAB PO SCH (20:12)
[2017-12-19] MEDS: Multivit, Therapeutic 1 TAB PO SCH (20:12)
[2017-12-19] MEDS: Cyanocobalamin (Vitamin B-12) 1,000 MCG TAB PO SCH (20:12)
--- NOTE | 2017-12-19 22:17 | PDOC.PN ---
- Subjective Encounter Start Date: 12/19/17 Encounter Start Time: 11:00 Patient seen and examined for HTN urgency/DM2. Vertigo slightly better. No overnight events - Objective Resuscitation Status: Resuscitation Status FULL:Full Resuscitation MAR Reviewed: Yes Vital Signs & Weight: Vital Signs (12 hours) Temp Pulse Pulse Pulse Pulse Resp BP 12/19/17 20:12 148/89 H 12/19/17 16:42 144/82 H 12/19/17 16:00 98.3 F 78 18 144/82 H 12/19/17 12:11 74 71 71 12/19/17 12:00 147/92 H 12/19/17 11:36 12/19/17 11:21 97.9 F 71 18 BP BP BP BP BP BP Pulse Ox 12/19/17 20:12 12/19/17 16:42 12/19/17 16:00 144/82 H 97 12/19/17 12:11 172/99 H 152/100 H 170/94 H 12/19/17 12:00 12/19/17 11:36 127/85 132/89 12/19/17 11:21 147/92 H Pulse Ox 12/19/17 20:12 12/19/17 16:42 12/19/17 16:00 12/19/17 12:11 97 12/19/17 12:00 12/19/17 11:36 12/19/17 11:21 Weight Admit Weight 187 lb 6 oz Weight 187 lb 6.004 oz I&O: 12/18/17 12/19/17 12/20/17 06:59 06:59 06:59 Intake Total 412 1300 1140 Output Total 500 800 Balance -88 500 1140 Result Diagrams: 12/17/17 04:14 12/19/17 04:18 Additional Labs: Accuchecks 12/19/17 12/19/17 12/19/17 20:21 16:13 11:32 POC Glucose 341 H 302 H 288 H 12/19/17 04:12 POC Glucose 212 H Phys Exam - Physical Examination Constitutional: NAD Respiratory: no wheezing, no rhonchi Cardiovascular: RRR, no rub Gastrointestinal: soft, non-tender, positive bowel sounds Musculoskeletal: no edema Neurological: non-focal, normal sensation, moves all 4 limbs Vertigo on head movement Dx/Plan (1) Headache Code(s): R51 - HEADACHE Status: Acute Qualifiers: Headache chronicity pattern: acute headache Intractability: intractable Comment: with Vertigo ?peripheral (2) Hypertensive urgency Code(s): I16.0 - HYPERTENSIVE URGENCY Status: Acute Comment: BP better controlled. (3) DM type 2 (diabetes mellitus, type 2) Status: Chronic Qualifiers: Chronic kidney disease stage: stage 2 (mild) Comment: Does not take any med at home, better controlled. (4) Alcohol withdrawal Code(s): F10.239 - ALCOHOL DEPENDENCE WITH WITHDRAWAL, UNSPECIFIED Status: Acute Qualifiers: Complication of substance-induced condition: uncomplicated Qualified Code(s ): F10.230 - Alcohol dependence with withdrawal, uncomplicated Comment: on Withdrawal protocol (5) DKA (diabetic ketoacidoses) Code(s): E13.10 - OTH DIABETES MELLITUS WITH KETOACIDOSIS WITHOUT COMA Status : Resolved Qualifiers: Diabetes mellitus type: type 2 - Plan PT/OT, DVT proph w/SCDs ENT follow up as outpt -: DC later today if able to walk with PT -: Cont Coreg and Lisinopril -: Add Metformin -: Cont current meds as below Review of Systems - Review of Systems Respiratory: negative: Cough, Dry, Shortness of Breath, Hemoptysis, SOB with Excertion, Pleuritic Pain, Sputum, Wheezing Cardiovascular: negative: chest pain, palpitations, orthopnea, paroxysmal nocturnal dyspnea, edema, light headedness, other - Medications/Allergies Allergies/Adverse Reactions: Allergies Allergy/AdvReac Type Severity Reaction Status Date / Time No Known Allergies Allergy Verified 12/14/17 22:32 Medications: Current Medications Acetaminophen (Tylenol) 650 mg PO Q8H PRN PRN Reason: Pain 1-3 Last Admin: 12/16/17 18:50 Dose: 650 mg Acetaminophen (Tylenol) 650 mg PO TID [facility] Last Admin: 12/19/17 20:11 Dose: 650 mg Acetaminophen/Butalbital/Caffeine (Fioricet) 1 tab PO Q4H PRN PRN Reason: Headache Stop: 12/23/17 14:34 Amlodipine Besylate (Norvasc) 5 mg PO DAILY PRN PRN Reason: SBP Greater Than 170 Aspirin (Aspirin Chewable) 81 mg PO DAILY [facility] Last Admin: 12/19/17 08:51 Dose: 81 mg Atorvastatin Calcium (Lipitor) 10 mg PO [facility] Last Admin: 12/19/17 20:12 Dose: 10 mg Bisacodyl (Dulcolax) 10 mg PO DAILYPRN PRN PRN Reason: Constipation Bisacodyl (Dulcolax) 10 mg IA Q24H PRN PRN Reason: Constipation Carvedilol (Coreg) 12.5 mg PO BID-[facility] Last Admin: 12/19/17 16:42 Dose: 12.5 mg Clonidine (Catapres) 0.1 mg PO Q4H PRN PRN Reason: Systolic BP > 180 Cyanocobalamin (Vitamin B-12) 1,000 mcg PO [facility] Last Admin: 12/19/17 20:12 Dose: 1,000 mcg Dextrose/Water (Dextrose 50%) 25 gm SLOW IVP PRN PRN PRN Reason: Hypoglycemia Famotidine (Pepcid) 20 mg PO BID [facility] Last Admin: 12/19/17 20:12 Dose: 20 mg Folic Acid (Folvite) 1 mg PO DAILY [facility] Last Admin: 12/19/17 08:50 Dose: 1 mg Glipizide (Glucotrol) 5 mg PO BID-[facility] Last Admin: 12/19/17 16:42 Dose: 5 mg Glucagon (Glucagon) 1 mg IM PRN PRN PRN Reason: Hypoglycemia Hydralazine HCl (Apresoline) 10 mg SLOW IVP Q4H PRN PRN Reason: Hypertension Last Admin: 12/17/17 11:36 Dose: 10 mg Dextrose/Water (D5w) 1,000 mls @ 0 mls/hr IV .Q0M PRN; As Directed PRN Reason: Hypoglycemia Insulin Human Lispro (Humalog) 0 units SC .MILD SLIDING SCALE PRN PRN Reason: Mild Correctional Scale Last Admin: 12/19/17 16:43 Dose: 5 unit Insulin Human Lispro (Humalog) 0 units SC .BEDTIME SLIDING SC PRN PRN Reason: Bedtime Correctional Scale Last Admin: 12/19/17 20:21 Dose: 4 unit Insulin Human NPH (Humulin N) 10 unit SC DAILY [facility] Lisinopril (Zestril) 5 mg PO BID [facility] Last Admin: 12/19/17 20:12 Dose: 5 mg Lorazepam (Ativan) 1 mg PO Q4H PRN PRN Reason: ASE >=9 Meclizine HCl (Antivert) 25 mg PO Q8H PRN PRN Reason: Dizziness Last Admin: 12/18/17 08:40 Dose: 25 mg Meclizine HCl (Antivert) 25 mg PO TID [facility] Last Admin: 12/19/17 20:12 Dose: 25 mg Metformin HCl (Glucophage) 500 mg PO BID-[facility] Multivitamins (Theragran) 1 tab PO [facility] Last Admin: 12/19/17 20:12 Dose: 1 tab Ondansetron HCl (Zofran) 4 mg IVP Q6H PRN PRN Reason: Nausea/Vomiting Ondansetron HCl (Zofran Odt) 4 mg PO Q6H PRN PRN Reason: Nausea/Vomiting Last Admin: 12/17/17 20:10 Dose: 4 mg Promethazine HCl (Phenergan) 12.5 mg SLOW IVP Q4H PRN PRN Reason: Nausea/Vomiting Last Admin: 12/15/17 13:37 Dose: 12.5 mg Pyridoxine HCl (Vitamin B 6) 50 mg PO [facility] Last Admin: 12/19/17 20:12 Dose: 50 mg Senna (Senokot) 2 tab PO HSPRN PRN PRN Reason: Constipation Sodium Chloride (Flush - Normal Saline) 10 ml IVF Q12HR [facility] Last Admin: 12/19/17 20:13 Dose: Not Given Sodium Chloride (Flush - Normal Saline) 10 ml IVF PRN PRN PRN Reason: Saline Flush Thiamine HCl (Thiamine) 100 mg PO DAILY [facility] Last Admin: 12/19/17 08:51 Dose: 100 mg
[2017-12-20 05:09] LABS: Anion Gap 13 mmol/L (10-20); BUN (Urea Nitrogen) 12 mg/dL (8.4-25.7); Calc. Creatinine Clearance 123 mL/min (70-130); Carbon Dioxide 22 mmol/L (22-29); Chloride 105 mmol/L (98-107); Estimated GFR-MDRD Greater than 90; Glucose 228 mg/dL (70-105); Potassium 3.7 mmol/L (3.5-5.1); Sodium 136 mmol/L (136-145)
[2017-12-20] MEDS: HumaLOG 300 UNITS/3 ML VIAL SC PRN ×2 (05:55→11:10)
[2017-12-20] MEDS ORDERED: metFORMIN 500 MG TAB PO SCH (08:00)
[2017-12-20] MEDS: Carvedilol 6.25 MG TAB PO SCH (08:55)
[2017-12-20] MEDS: glipiZIDE 5 MG TAB PO SCH (08:55)
[2017-12-20] MEDS: Famotidine 20 MG TAB PO SCH (08:56)
[2017-12-20] MEDS: Folic Acid 1 MG TAB PO SCH (08:56)
[2017-12-20] MEDS: Lisinopril 5 MG TAB PO SCH (08:56)
[2017-12-20] MEDS: Acetaminophen 325 MG TAB PO SCH (08:56)
[2017-12-20] MEDS: Meclizine HCl 25 MG TAB PO SCH (08:57)
[2017-12-20] MEDS ORDERED: NPH, Human Insulin Isophane 300 UNIT/3 ML VIAL SC SCH (09:00)
[2017-12-20] MEDS ORDERED: Polyethylene Glycol 3350 17 GM Packet PO PRN (09:43)
[2017-12-20 12:05] VITALS: BP 138/91; TEMP 97.9
--- NOTE | 2017-12-21 11:28 | DIS ---
DATE OF DISCHARGE: 12/20/2017 DISCHARGE DISPOSITION: Home. FOLLOWUP: 1. Follow up with Dr. Blake in 1 week. 2. Follow up with ENT for persistent dizziness with vertigo. DISCHARGE MEDICATIONS: NPH 10 units daily, meclizine as needed, glipizide 5 mg twice a day, lisinopr il 5 mg twice a day, carvedilol 6.25 mg twice a day, Lipitor 10 mg at bedtime, aspirin 81 mg daily, Z ofran as needed, metformin 500 mg daily. Patient was seen and examined on the day of discharge, denies any new complaints. No chest pain, judy rtness of breath, palpitations reported. BRIEF HOSPITAL COURSE: Patient is a 57-year-old male with diabetes mellitus type 2, hypertension, co ronary artery disease with chronic alcoholism currently noncompliant with medications presented to [facility] with persistent dizziness as well as headache and vertigo. His workup was consistent with hypertensive urgency. His blood pressure improved after parenteral medications. His blood pressure is currently stable with carvedilol and lisinopril. For diabetes, he has been started on metformin and glipizide. Later on insulin was added. He also had mild diabetic ketoacidosis on admission with ketones of 5.35. Echocardiogram showed left ventricular ejection fraction 40%-45% with mild diastol ic dysfunction. He was extensively counseled on diabetes mellitus type 2 as well as hypertension. A lcohol cessation was emphasized. Plan of care was discussed with the patient in detail. He stated u nderstanding. Fall precaution was emphasized. Rolling walker has been arranged. His vertigo improv ed with meclizine. He was advised to follow up with ENT for persistent vertigo, which is peripheral in nature. CT scan of the brain was negative. FINAL DIAGNOSES: 1. Hypertensive urgency, resolved. 2. Diabetes mellitus, type 2 with mild diabetic ketoacidosis, resolved. 3. Chronic kidney disease stage 2. 4. Chronic alcoholism with suspected alcohol withdrawal. 5. Persistent headache, improved. 6. Peripheral vertigo. An outpatient ENT followup will be arranged. Plan of care was discussed with the patient in detail, he stated understanding. Total time coordinating the discharge of this patient was 33 minutes.
== END 2017-12-20 11:17 | disposition home or self-care (01) | DRG 304 ==
LOC: ERS 18:21 → 2SW 20:57 → OBSVTOIN 20:57 → T4-B 12-15 14:50
PROVIDERS: ADMIT Internal Medicine Infectious Disease; ATTEND Internal Medicine Infectious Disease
DX: I16.0 Hypertensive urgency (principal); E11.10 Type 2 diabetes mellitus with ketoacidosis without coma; F10.239 Alcohol dependence with withdrawal, unspecified; N18.2 Chronic kidney disease, stage 2 (mild); Z91.14 Patient's other noncompliance with medication regimen; Z79.899 Other long term (current) drug therapy; Z95.5 Presence of coronary angioplasty implant and graft; Z91.19 Patient's noncompliance with other medical treatment and regimen; R55 Syncope and collapse; I25.10 Atherosclerotic heart disease of native coronary artery without angina pectoris; E78.5 Hyperlipidemia, unspecified
CPT/HCPCS: 36415; 36416; 70450; 71045; 80048; 80053; 80061; 81003; 82010; 82330; 82553; 82803; 83036; 83690; 83735; 84100; 84484; 85025; 87086; 93005; 93306; 96365; 96366; A4216; G8978-GP-CJ; G8978-GP-CN; G8979-GP-CJ; G8979-GP-CK; J0360; J1650; J1815; J2550; J3411; J7042; Q0162; S0028

== ENCOUNTER 2018-03-13 13:31 | Observation (INO) | payer SELFPAY ==
[2018-03-13 14:08] LABS: #Basophils 0.1 thou/uL (0.0-0.2); #Eosinphils 0.1 thou/uL (0.0-0.7); #Lymphocytes 1.8 thou/uL (1.20-3.40); #Monocytes 0.3 thou/uL (0.11-0.59); #Neutrophils 3.4 thou/uL (1.40-6.50); %Lymphocytes 31.5 % (21.0-51.0); %Monocytes 5.2 % (0.0-10.0); %Neutrophils 60.2 % (42.0-75.0); Hemoglobin 14.9 g/dL (14.0-18.0); Mean Corpuscular HGB CONC 35.5 g/dL (32.0-36.0); Mean Corpuscular Hemoglobin 31.6 pg (27.0-31.0); Platelet Count 158 thou/uL (130-400); RBC Distribution Width 12.1 % (11.5-14.5); Red Blood Cell (RBC) Count 4.72 mill/uL (4.70-6.10); White Blood Cell (WBC) Count 5.6 thou/uL (4.8-10.8)
--- NOTE | 2018-03-13 14:16 | RAD ---
AP VIEW OF THE CHEST: INDICATION: History of chest pain. COMPARISON: Prior study of 12/14/17. FINDINGS: Low lung volumes accentuate the cardiac silhouette and pulmonary vasculature. No focal consolidation , pleural effusion, or pneumothorax evident. No acute osseous abnormality is evident. IMPRESSION: Low lung volumes. No definite acute cardiopulmonary abnormality. POS: [facility]
[2018-03-13 14:26] LABS: ALT (SGPT) 22 U/L (8-55); AST (SGOT) 18 U/L (5-34); Albumin 4.2 g/dL (3.5-5.0); Alkaline Phosphatase 86 U/L (40-150); Anion Gap 17 mmol/L (10-20); BUN (Urea Nitrogen) 5 mg/dL (8.4-25.7); Bilirubin, Total 0.5 mg/dL (0.2-1.2); CK (CPK) 169 U/L (30-200); Calc. Creatinine Clearance 0 mL/min (70-130); Calcium 9.5 mg/dL (7.8-10.44); Carbon Dioxide 24 mmol/L (22-29); Chloride 98 mmol/L (98-107); Estimated GFR-MDRD 90; Globulin 3.6 g/dL (2.4-3.5); Glucose 310 mg/dL (70-105); Potassium 3.9 mmol/L (3.5-5.1); Protein, Total 7.8 g/dL (6.0-8.3); Sodium 135 mmol/L (136-145)
[2018-03-13 14:30] LABS: CKMB 3.2 ng/mL (0-6.6); Troponin I Less than 0.010 ng/mL (< 0.028)
--- NOTE | 2018-03-13 14:32 | CT ---
CT OF THE BRAIN WITHOUT CONTRAST: INDICATION: History of chest pain and hypertension. COMPARISON: Prior exam dated 12/18/17. FINDINGS: No definite acute infarct, hemorrhage, or hydrocephalus is present. There is encephalomalacia involv ing the left lower portion of the cerebellar hemisphere which is stable. The skull and extracranial soft tissues appear within normal limits. IMPRESSION: No acute intracranial abnormality. Stable chronic ischemic change. POS: [facility]
[2018-03-13] MEDS ORDERED: Lorazepam 2 MG/ML VIAL ONE (14:59)
[2018-03-13 15:34] LABS: Magnesium 1.9 mg/dL (1.6-2.6); Phosphorus 2.8 mg/dL (2.3-4.7)
[2018-03-13] MEDS ORDERED: hydrALAZINE 20 MG/ML VIAL SLOW IVP PRN (15:59)
[2018-03-13] MEDS ORDERED: Labetalol HCl 100 MG/20 ML VIAL SLOW IVP PRN (15:59)
[2018-03-13] MEDS ORDERED: Insulin Regular 300 UNITS/3 ML VIAL SC PRN (16:03)
[2018-03-13] MEDS ORDERED: Dextrose 50% Abboject 50 ML SYRINGE SLOW IVP PRN (16:03)
[2018-03-13] MEDS ORDERED: Nitroglycerin 0.4 MG TAB (25 Tab Bottle) PO PRN (16:03)
[2018-03-13] MEDS ORDERED: Ondansetron ODT 4 MG TAB PO PRN (16:03)
[2018-03-13] MEDS ORDERED: Dextrose 5% in Water 1,000 ML IV PRN (16:03)
[2018-03-13] MEDS ORDERED: Calcium Carbonate 500 MG ChewTAB PO PRN (16:03)
[2018-03-13] MEDS ORDERED: Mag-Al 1200 mg/1200 mg/30 ML UDCUP PO PRN (16:03)
[2018-03-13] MEDS ORDERED: cloNIDine 0.1 MG TAB PO PRN (16:03)
[2018-03-13] MEDS ORDERED: Senokot 8.6 MG TAB PO PRN (16:03)
[2018-03-13] MEDS ORDERED: Acetaminophen 325 MG TAB PO PRN (16:03)
[2018-03-13] MEDS ORDERED: Folic Acid 1 MG TAB PO SCH (16:15)
--- NOTE | 2018-03-13 16:20 | HP ---
DATE OF ADMISSION: 03/13/2018 PRIMARY CARE PHYSICIAN: Margie Portillo. CHIEF COMPLAINT: Dizziness with vertigo and headache. HISTORY OF PRESENT ILLNESS: Patient is a 57-year-old male with medication noncompliance; ch ronic alcoholism; diabetes mellitus, type 2; and hypertension who presented to the emergency room wit h above complaints. The patient was admitted to this facility in December for similar complaints. He wa s discharged home on carvedilol, insulin, glipizide, lisinopril, aspirin, and metformin. The patient states that, over the last 2 weeks, patient has not been taking his medications. He continues to dr ink heavily. His last drink was yesterday. The patient complained of lightheadedness, dizziness with intermittent chest pain over the past few d ays. His symptoms got worse today, for which EMS was called. He felt lightheaded, dizzy; however, d enies loss of consciousness. He also complained of spinning sensation, which has been chronic. He h as not taken medications over the last 2-3 weeks. He denies any double vision, blurring of vision, f acial asymmetry, weakness, numbness of any of his extremities. No epistaxis, flank pain, or hematuri a reported. His blood pressure, when EMS picked him up, was 230/138 with a pulse rate of 116. He received 2 dose s of nitro and a nitro patch was placed. His blood pressure on ER arrival was 166/106 with pulse rat e of 110, respirations 26, temperature 98.8 with O2 saturation 95% on room air. PAST MEDICAL HISTORY: 1. Chronic alcoholism. 2. Medication noncompliance. 3. Diabetes mellitus, type 2. 4. Hypertension. 5. Coronary artery disease, status post stent placement. 6. History of drug abuse including cocaine. PAST SURGICAL HISTORY: 1. Coronary stent placement. 2. Cholecystectomy. ALLERGIES: No known drug allergies. CURRENT HOME MEDICATIONS: The patient does not remember any of his home medication. Family to get a ccurate list of his medications. FAMILY HISTORY: Negative for heart disease. SOCIAL HISTORY: As discussed above. He has prior history of cocaine abuse. He drinks alcohol heavi ly. Last drink was yesterday. No tobacco. REVIEW OF SYSTEMS: The following complete review of systems was negative, unless otherwise mentioned in the HPI or below: Constitutional: Weight loss or gain, ability to conduct usual activities. Sk in: Rash, itching. Eyes: Double vision, pain. ENT/Mouth: Nose bleeding, neck stiffness, pain, te nderness. Cardiovascular: Palpitations, dyspnea on exertion, orthopnea. Respiratory: Shortness of breath, wheezing, cough, hemoptysis, fever, or night sweats. Gastrointestinal: Poor appetite, abdo johnie pain, heartburn, nausea, vomiting, constipation, or diarrhea. Genitourinary: Urgency, frequen cy, dysuria, nocturia. Musculoskeletal: Pain, swelling. Neurologic/Psychiatric: Anxiety, depressi on. Allergy/Immunologic: Skin rash, bleeding tendency. PHYSICAL EXAMINATION: VITAL SIGNS: As discussed above. GENERAL: A 57-year-old male in no apparent distress. Continues to have dizziness. HEENT: Head, atraumatic and normocephalic. Sclerae are anicteric. Moist mucous membrane, no oral l esion. NECK: Supple, no JVD appreciated. No carotid bruit. LUNGS: Clear to auscultation bilaterally. HEART: S1 and S2 present. Regular rate and rhythm, no murmur, rubs, or gallops. ABDOMEN: Soft, nontender, bowel sounds present. EXTREMITIES: No edema or calf tenderness. NEUROLOGIC: Cranial nerves II-XII were normal on examination. Power was 5/5 in all extremities. Fi [id number] test was normal. Reflexes were equivocal. PSYCHIATRY: Alert, awake, oriented x3. SKIN: Warm and dry. LYMPH NODES: No palpable lymph nodes in the neck. PERIPHERAL VASCULAR: Radial pulses palpable bilaterally. MUSCULOSKELETAL: No joint swelling or tenderness. LABORATORY AND X-RAY FINDINGS: CBC showed WBC 5.6 with hemoglobin 14.9, hematocrit 42, platelets 158 . Alcohol level was 10. Chemistries showed sodium 135, potassium 3.9, chloride 98, bicarbonate 24, BUN 5, creatinine 0.8. Electrolytes, otherwise, were in normal range. Troponins negative. EKG, by my review, showed sinus tachycardia with nonspecific ST-T-wave changes. Chest x-ray, by my review, was negative for infiltrate. CT scan of the brain, by my review, was nega tive for acute findings. IMPRESSION AND PLAN: 1. Hypertensive urgency secondary to medication noncompliance. 2. Chronic alcoholism with last drink yesterday. 3. Persistent dizziness with vertigo, peripheral in etiology. The patient was advised to follow up with ENT last admission. However, the patient has not seen an ENT yet. 4. Diabetes mellitus, type 2. 5. Chronic kidney disease, stage 2. 6. Headache, probably secondary to uncontrolled hypertension. 7. Medication noncompliance. 8. Mild hyponatremia. PLAN: The patient will be monitored on the telemetry unit. We will start him on his home medication s along with p.r.n. antihypertensives. We will add alcohol withdrawal protocol. Patient was extensi vely counseled to be compliant with all of his medication. We will start him on insulin sliding scal e. Vital signs q.4 hourly. DISPOSITION: Probably in a.m. if his blood pressure is controlled. Plan of care was discussed with the patient in detail. He stated understanding.
[2018-03-13 16:46] VITALS: BMI 30.7
[2018-03-13] MEDS: Carvedilol 6.25 MG TAB PO SCH (17:21)
[2018-03-13] MEDS: Insulin Regular 300 UNITS/3 ML VIAL SC PRN (17:21)
[2018-03-13] MEDS ORDERED: Fluticasone Propionate Nasal Spray 16 gm Bottle NASAL SCH (20:00)
[2018-03-13] MEDS: Ondansetron PF 4 MG/2 ML Vial IVP PRN (20:17)
[2018-03-13] MEDS: Lisinopril 5 MG TAB PO SCH (20:28)
[2018-03-13] MEDS: Famotidine 20 MG TAB PO SCH (20:28)
[2018-03-13] MEDS: Docusate 100 MG CAP PO SCH (20:29)
[2018-03-13] MEDS: Lorazepam 1 MG TAB PO PRN (20:51)
[2018-03-13 22:40] LABS: Amphetamine Not Detected (NotDetected); Barbiturates Screen Not Detected (NotDetected); Benzodiazepine Screen Detected (NotDetected); Cocaine Metabolite Screen Not Detected (NotDetected); Medtox Control Line Valid? VALID (VALID); Medtox Reader # READER 4; Methadone Not Detected (NotDetected); Methamphetamine Not Detected (NotDetected); Opiate Screen Not Detected (NotDetected); Oxycodone Screen Not Detected (NotDetected); Phencyclidine (PCP) Not Detected (NotDetected); THC/Cannabinoid Screen Not Detected (NotDetected); Tricyclic Screen Not Detected (NotDetected)
[2018-03-14 04:54] LABS: Anion Gap 16 mmol/L (10-20); BUN (Urea Nitrogen) 8 mg/dL (8.4-25.7); Calc. Creatinine Clearance 121 mL/min (70-130); Calcium 9.3 mg/dL (7.8-10.44); Carbon Dioxide 21 mmol/L (22-29); Chloride 101 mmol/L (98-107); Estimated GFR-MDRD Greater than 90; Glucose 232 mg/dL (70-105); Sodium 134 mmol/L (136-145)
[2018-03-14] MEDS: Insulin Regular 300 UNITS/3 ML VIAL SC PRN (05:53)
[2018-03-14] MEDS: Ondansetron PF 4 MG/2 ML Vial IVP PRN (07:15)
[2018-03-14] MEDS ORDERED: glipiZIDE 5 MG TAB PO SCH (07:30)
[2018-03-14 08:06] VITALS: BP 142/86
[2018-03-14 08:13] VITALS: TEMP 98.8
[2018-03-14] MEDS ORDERED: Multivit, Therapeutic 1 TAB PO SCH (09:00)
[2018-03-14] MEDS ORDERED: Folic Acid 1 MG TAB PO SCH (09:00)
[2018-03-14] MEDS ORDERED: Fluticasone Propionate Nasal Spray 16 gm Bottle NASAL SCH (09:00)
[2018-03-14] MEDS ORDERED: Aspirin 81 mg Enteric Coated Tablet PO SCH (09:00)
[2018-03-14] MEDS: Carvedilol 6.25 MG TAB PO SCH (09:07)
[2018-03-14] MEDS: Lisinopril 5 MG TAB PO SCH (09:08)
[2018-03-14] MEDS: Docusate 100 MG CAP PO SCH (09:08)
[2018-03-14] MEDS: Famotidine 20 MG TAB PO SCH (09:08)
[2018-03-14] MEDS: Lorazepam 1 MG TAB PO PRN (09:10)
--- NOTE | 2018-03-14 10:19 | DIS ---
DATE OF ADMISSION: 03/13/2018 DATE OF DISCHARGE: 03/14/2018 DISCHARGE DIAGNOSES: 1. Hypertensive urgency. 2. Vertigo. 3. Diabetes mellitus. 4. Hypertension. 5. Dyslipidemia. 6. History of coronary artery disease. 7. History of alcoholism. 8. Medication noncompliance. HOSPITAL COURSE: This patient is a 57-year-old male, who has chronic blindness and chronic alcohol a buse. The patient was recently admitted to this facility with similar symptoms of dizziness and nonc ompliance with his medications. The patient had a severe elevation of his blood pressure. He was se en initially in the emergency department and subsequently admitted into observation. The patient was resumed back on his usual home medications and given coverage with sliding scale for his blood sugar s. He reported that he did have his medications at home, but he simply had not been taking them and had been drinking too much. Indicated that he was aware that his drinking was a problem and then emily nned to discontinue. PHYSICAL EXAMINATION: VITAL SIGNS: On the day of discharge, temperature 98.8, pulse 88, BP 142/86, respirations 16, 97% on room air. GENERAL APPEARANCE: The patient is age appropriate, in no distress, slightly obese, and blind. HEART: Regular rate and rhythm without murmur. LUNGS: Clear bilaterally. ABDOMEN: Soft, nontender, nondistended. EXTREMITIES: Warm and dry. LABORATORY DATA: Sodium 134, potassium 4.0, chloride 101, CO2 is 21, BUN 16, creatinine 0.82, blood sugar 232, and calcium 9.3. DISPOSITION: The patient is discharged to home. He is to remain on the diabetic diet. He is to fol low up with Dr. Blake. The patient is not fully aware of his medications in detail, and family i s not returning calls to help confirm that, but he is to resume all of his usual home medications, wh ich at last discharge included Levemir FlexPen 10 units subcutaneously q.a.m. and 5 units subcutaneou sly at bedtime, Glucophage 500 mg every day, glipizide 5 mg b.i.d., Zofran p.r.n., multivitamin 1 efra ry day, Antivert p.r.n., Zestril 5 mg b.i.d., Coreg 6.25 b.i.d., atorvastatin 10 mg at bedtime, and aspirin 81 mg p.o. daily. The patient is to return to the emergency department should he have any pr oblems prior to the time of his followup.
--- NOTE | 2018-03-18 20:52 | EKG ---
Test Reason : Blood Pressure : / mmHG Vent. Rate : 108 BPM Atrial Rate : 108 BPM P-R Int : 140 ms QRS Dur : 084 ms QT Int : 350 ms P-R-T Axes : 039 009 105 degrees QTc Int : 469 ms Sinus tachycardia Possible Left atrial enlargement Nonspecific T wave abnormality Abnormal ECG Confirmed by ANSHUL NAVA ([id number]), supervising film or videotape editor NOAM LAYTON ([id number]) on 03/18/2018 8:51:33 PM Referred By: Confirmed By:ANSHUL NAVA
== END 2018-03-14 11:25 | disposition home or self-care (01) ==
LOC: ERS 13:31 → 2SW 16:36
PROVIDERS: ADMIT Internal Medicine; ATTEND Internal Medicine
DX: I16.0 Hypertensive urgency (principal); I25.2 Old myocardial infarction; E78.5 Hyperlipidemia, unspecified; E11.22 Type 2 diabetes mellitus with diabetic chronic kidney disease; I12.9 Hypertensive chronic kidney disease with stage 1 through stage 4 chronic kidney disease, or unspecified chronic kidney disease; N18.2 Chronic kidney disease, stage 2 (mild); E87.1 Hypo-osmolality and hyponatremia; F10.20 Alcohol dependence, uncomplicated; I25.10 Atherosclerotic heart disease of native coronary artery without angina pectoris; Z91.14 Patient's other noncompliance with medication regimen; Z95.5 Presence of coronary angioplasty implant and graft
CPT/HCPCS: 36415; 36416; 70450; 71045; 80048; 80053; 80306; 80307; 82553; 83735; 84100; 84484; 85025; 93005; 94760; 96374; 96375; 96376; G0378; J1815; J2060; J2405

== ENCOUNTER 2019-06-27 20:18 | Observation (INO) | payer SELFPAY ==
[2019-06-27 20:42] LABS: #Eosinphils 0.4 thou/uL (0.0-0.7); #Monocytes 0.5 thou/uL (0.11-0.59); #Neutrophils 4.3 thou/uL (1.40-6.50); %Basophils 0.5 % (0.0-1.0); %Eosinophils 5.3 % (0.0-10.0); %Lymphocytes 28.1 % (21.0-51.0); %Monocytes 6.5 % (0.0-10.0); %Neutrophils 59.6 % (42.0-75.0); Hemoglobin 14.9 g/dL (14.0-18.0); Mean Corpuscular HGB CONC 33.9 g/dL (32.0-36.0); Mean Corpuscular Hemoglobin 30.7 pg (27.0-31.0); Mean Corpuscular Volume 90.6 fL (78.0-98.0); Mean Platelet Volume 8.1 fL (7.4-10.4); Platelet Count 194 thou/uL (130-400); RBC Distribution Width 13.7 % (11.5-14.5); Red Blood Cell (RBC) Count 4.83 mill/uL (4.70-6.10); White Blood Cell (WBC) Count 7.2 thou/uL (4.8-10.8)
[2019-06-27 21:03] LABS: ALT (SGPT) 11 U/L (8-55); AST (SGOT) 13 U/L (5-34); Albumin 4.2 g/dL (3.5-5.0); Alkaline Phosphatase 146 U/L (40-110); Anion Gap 13 mmol/L (10-20); BUN (Urea Nitrogen) 13 mg/dL (8.4-25.7); Bilirubin, Total 0.7 mg/dL (0.2-1.2); Calc. Creatinine Clearance 0 mL/min (70-130); Calcium 9.3 mg/dL (7.8-10.44); Carbon Dioxide 27 mmol/L (22-29); Chloride 101 mmol/L (98-107); Estimated GFR-MDRD 54; Globulin 3.9 g/dL (2.4-3.5); Glucose 199 mg/dL (70-105); Potassium 4.4 mmol/L (3.5-5.1); Protein, Total 8.1 g/dL (6.0-8.3); Sodium 137 mmol/L (136-145)
--- NOTE | 2019-06-27 21:12 | RAD ---
PORTABLE CHEST: 06/27/19 HISTORY: Chest pain. FINDINGS/IMPRESSION: The lungs show no infiltrate. Heart size is upper normal with mild vascular congestion. Tiny effusion s may be present. POS: [facility]
[2019-06-27] MEDS ORDERED: Pantoprazole 40 MG VIAL ONE (22:28)
[2019-06-27] MEDS ORDERED: Ondansetron PF 4 MG/2 ML Vial ONE (22:28)
[2019-06-27] MEDS ORDERED: Nitroglycerin 2% Ointment 1 INCH/1 GM Packet ONE (22:28)
[2019-06-27 23:03] LABS: Bilirubin Negative (Negative); Blood, Urine Negative (Negative); Clarity Clear (Clear); Glucose, Urine (Dipstick) Normal (Negative); Leukocyte 500 Leu/uL (Negative); Nitrite Negative (Negative); Protein, Urine (Dipstick) Negative (Neg-Trace); RBC/HPF 0-3 HPF (0-3); Squamous Epithelial None Seen HPF (0-3); Urobilinogen Normal mg/dL (Less than 2)
[2019-06-27 23:14] LABS: Bacteria/HPF Rare-Few HPF (None Seen); WBC/HPF 21-50 HPF (0-3)
[2019-06-28] MEDS ORDERED: Levofloxacin 500 mg/D5W 100 ml Premix Bag ONE (00:23)
[2019-06-28 01:27] LABS: Troponin I Less than 0.010 ng/mL (< 0.028)
[2019-06-28] MEDS ORDERED: Acetaminophen 325 MG TAB PO PRN (03:33)
[2019-06-28] MEDS ORDERED: Dextrose 5% in Water 1,000 ML IV PRN (03:33)
[2019-06-28] MEDS ORDERED: HumaLOG 300 UNITS/3 ML VIAL SC PRN (03:33)
[2019-06-28] MEDS ORDERED: HYDROcodone/Acetaminophen 5/325 mg Tablet PO PRN (03:33)
[2019-06-28] MEDS ORDERED: Dextrose 50% Abboject 50 ML SYRINGE SLOW IVP PRN (03:33)
[2019-06-28] MEDS ORDERED: hydrALAZINE 20 MG/ML VIAL SLOW IVP PRN (03:37)
[2019-06-28] MEDS ORDERED: Nitroglycerin 0.4 MG TAB (25 Tab Bottle) SL PRN (03:37)
[2019-06-28] MEDS ORDERED: Morphine 2 MG/ML SYRINGE SLOW IVP PRN (03:37)
[2019-06-28 03:57] LABS: Troponin I Less than 0.010 ng/mL (< 0.028)
--- NOTE | 2019-06-28 03:57 | HP ---
PRESENTING COMPLAINT: Chest pain, shortness of breath. HISTORY OF PRESENT ILLNESS: Corbin Valdes is a 58-year-old male with history of hypertension, diabetes mellitus, regular alcohol abuse, history of medication nonadherence in the past, who presented today because of complaint of substernal chest pain associated with shortness of breath initially on exertion, now currently at rest. The patient also admits to passing of black tarry stools since the last one week. He also admits to dysuria, but denies any fever or chills. He admits to cough, but denies any pleuritic chest pain. The patient states he has had a workup for this in the past. He states he is not currently taking any medications. He repeatedly keeps saying he was told he does not need any of his medications. However, review of the patient's home record shows the patient is supposed to be on multiple medications. He admits to still drinking alcohol every day, but he is not specific on how much he drinks. PAST MEDICAL HISTORY: Significant for hypertension, hyperlipidemia, diabetes mellitus type 2. HOME MEDICATIONS: Include: 1. Metformin. 2. Glipizide. 3. Insulin regimen. 4. Lisinopril. 5. Levemir. 6. Coreg. 7. Lipitor. 8. Aspirin. The patient states he is not taking anything. ALLERGIES: NO KNOWN DRUG ALLERGIES. FAMILY HISTORY: Significant for hypertension and diabetes. SOCIAL HISTORY: The patient admits to former tobacco use, quit over four years ago. Admits to regular alcohol intake. Denies any illicit drug use. REVIEW OF SYSTEMS: All systems reviewed x14 were negative except as mentioned above. The patient denies history of EGD or colonoscopy in the past. PHYSICAL EXAMINATION: VITAL SIGNS: Current vitals; blood pressure of 155/99, pulse of 92, respiratory rate of 18, O2 saturation was 95% on room air. Temperature afebrile. GENERAL: Obese middle-aged male, lying in bed. HEENT: Head is atraumatic, normocephalic. Pupils equal and reactive to light. Extraocular motor movement intact. NECK: No JVD. No carotid bruit. RESPIRATORY: Good air entry. No crepitations. No bibasal rhonchi. CARDIOVASCULAR: S1, S2. Rate and rhythm regular. No reproducible chest wall tenderness. ABDOMEN: Full, soft. Bowel sounds positive. No epigastric tenderness. No suprapubic fullness. RECTAL: Already done by emergency room physician with findings of guaiac positive stool and enlarged prostate. EXTREMITIES: Trace pedal edema. No calf tenderness. NEURO: The patient is alert and conversant. LABORATORY DATA: WBC 7.2, hemoglobin 14.9, platelet 194. Potassium 4.4, creatinine 1.35. AST and ALT normal. Alkaline phosphatase 146. Troponin initial 0.018, repeat of less than 0.01. BNP of 324. Urinalysis shows 21 to 50 wbc. IMPRESSION: 1. Atypical chest pain. 2. Presumed upper gastrointestinal bleed may be due to from esophageal varices. 3. Transient elevated troponin-resolved. 4. Mild congestive heart failure exacerbation. 5. Urinary tract infection. 6. Diabetes mellitus. 7. Hypertension. 8. Medication nonadherence. 9. Chronic alcohol abuse. PLAN: We will admit the patient to inpatient status. We will manage the patient for the followin. Atypical chest pain with transient troponin elevation likely due to demand mediated since absent EKG changes. We hold use of aspirin or Plavix at this time. We will consult Cardiology, but may likely need low-dose aspirin after worsening GI bleed ruled out. 2. Presumed upper GI bleed given history of alcohol abuse, may be due to esophageal or gastric ulceration bleed. We will start the patient on IV Protonix 40 q.12. We will consult GI. It is guaiac-positive stool for EGD. Continue to monitor H and H. 3. UTI, likely due to underlying BPH. We will start the patient on low-dose Flomax. We will also do antibiotics with Levaquin and follow urine culture. 4. Mild CHF exacerbation. We will start the patient on low-dose Lasix 40 mg daily. 5. Advanced directive. The patient is a full code. 6. History of chronic alcohol abuse. We will do CIWA protocol with IV Ativan p.r.n. as needed for withdrawal at this time. Total time spent in review of record, discussion with patient and evaluation, greater than 60 minutes. 7. Diabetes mellitus. We will do insulin sliding scale. We will restart glipizide. Job ID: [id number]
[2019-06-28 04:01] VITALS: BMI 33.5
[2019-06-28] MEDS ORDERED: Lorazepam 2 MG/ML VIAL SLOW IVP PRN (04:03)
[2019-06-28 04:35] LABS: #Eosinphils 0.4 thou/uL (0.0-0.7); #Monocytes 0.5 thou/uL (0.11-0.59); #Neutrophils 4.3 thou/uL (1.40-6.50); %Basophils 0.4 % (0.0-1.0); %Eosinophils 5.3 % (0.0-10.0); %Lymphocytes 27.8 % (21.0-51.0); %Monocytes 6.8 % (0.0-10.0); %Neutrophils 59.7 % (42.0-75.0); Hemoglobin 13.8 g/dL (14.0-18.0); Mean Corpuscular HGB CONC 34.1 g/dL (32.0-36.0); Mean Corpuscular Hemoglobin 30.9 pg (27.0-31.0); Mean Corpuscular Volume 90.6 fL (78.0-98.0); Platelet Count 170 thou/uL (130-400); RBC Distribution Width 13.4 % (11.5-14.5); Red Blood Cell (RBC) Count 4.46 mill/uL (4.70-6.10); White Blood Cell (WBC) Count 7.3 thou/uL (4.8-10.8)
[2019-06-28 04:59] LABS: Anion Gap 12 mmol/L (10-20); BUN (Urea Nitrogen) 11 mg/dL (8.4-25.7); Calc. Creatinine Clearance 99 mL/min (70-130); Calcium 8.7 mg/dL (7.8-10.44); Carbon Dioxide 24 mmol/L (22-29); Chloride 105 mmol/L (98-107); Estimated GFR-MDRD 69; Glucose 127 mg/dL (70-105); Potassium 4.1 mmol/L (3.5-5.1); Sodium 137 mmol/L (136-145)
[2019-06-28] MEDS: glipiZIDE 5 MG TAB PO SCH ×2 (09:57→17:05)
[2019-06-28] MEDS: Lisinopril 5 MG TAB PO SCH ×2 (09:58→20:28)
[2019-06-28] MEDS: Carvedilol 6.25 MG TAB PO SCH ×2 (09:59→17:05)
[2019-06-28] MEDS: metFORMIN 500 MG TAB PO SCH (09:59)
[2019-06-28] MEDS ORDERED: Pantoprazole 40 MG VIAL ONE (10:00)
[2019-06-28] MEDS ORDERED: Furosemide 40 MG/4 ML VIAL ONE (10:00)
[2019-06-28] MEDS: Furosemide 40 MG/4 ML VIAL SLOW IVP SCH (10:05)
[2019-06-28] MEDS: Pantoprazole 40 MG VIAL IVP SCH ×2 (10:08→20:33)
[2019-06-28] MEDS: Heparin 5,000 UNITS/ML VIAL SC SCH ×3 (12:54→20:21)
--- NOTE | 2019-06-28 13:59 | PDOC.HOSPP ---
- Subjective Subjective: Pt reports that his chest pain has resolved and his SOB has improved. Resting comfortably in bed. - Objective Vital Signs & Weight: Weight Weight 214 lb 1.102 oz Result Diagrams: 06/28/19 04:28 06/28/19 04:28 Additional Labs: Accuchecks 06/28/19 07:14 POC Glucose 142 H Hospitalist ROS - Medication Medications: Active Medications Generic Name Dose Route Start Last Admin Trade Name Freq PRN Reason Stop Dose Admin Carvedilol 6.25 mg 06/28/19 08:00 06/28/19 09:59 Coreg PO 6.25 mg BID-WM ADAMS Administration Furosemide 40 mg 06/28/19 09:00 06/28/19 10:05 Lasix SLOW IVP 40 mg DAILY ADAMS Administration Glipizide 5 mg 06/28/19 07:30 06/28/19 09:57 Glucotrol PO 5 mg BID-AC ADAMS Administration Heparin Sodium (Porcine) 5,000 units 06/28/19 09:00 06/28/19 12:54 Heparin SC Not Given TID ADAMS Lisinopril 5 mg 06/28/19 09:00 06/28/19 09:58 Zestril PO 5 mg BID ADAMS Administration Metformin HCl 500 mg 06/28/19 08:00 06/28/19 09:59 Glucophage PO 500 mg QAM-WM ADAMS Administration Pantoprazole Sodium 40 mg 06/28/19 09:00 06/28/19 10:08 Protonix IVP 40 mg Q12HR ADAMS Administration - Exam General Appearance: NAD, awake alert Heart: RRR, no murmur, no gallops, no rubs Respiratory: CTAB, no wheezes, no rales, no ronchi, normal chest expansion, no tachypnea Gastrointestinal: soft, non-tender, non-distended Extremities: no edema Hosp A/P (1) CHF (congestive heart failure), NYHA class III Code(s): I50.9 - HEART FAILURE, UNSPECIFIED Status: Acute (2) GI bleed Code(s): K92.2 - GASTROINTESTINAL HEMORRHAGE, UNSPECIFIED Status: Acute (3) Alcohol abuse Code(s): F10.10 - ALCOHOL ABUSE, UNCOMPLICATED Status: Acute (4) DM type 2 (diabetes mellitus, type 2) Status: Chronic Qualifiers: Chronic kidney disease stage: stage 2 (mild) (5) HTN (hypertension) Code(s): I10 - ESSENTIAL (PRIMARY) HYPERTENSION Status: Chronic Qualifiers: Hypertension type: essential hypertension Qualified Code(s): I10 - Essential (primary) hypertension - Plan Acute on Chronic Combined Systolic and Diastolic CHF NYHA Stage III: Will order echo. Diuresis with Lasix 40 IVP QD. Will monitor creatinine with AM run. Chest Pain and history of CAD: Relieved by nitroglycerine. Resolved now. Get lipid panel in AM run. Ordered Cardiolite stress test. GI Bleed: Started on Protonix 40 BID. H&H stable. GI consulted. Will follow their recommendations. Diabetes Mellitus: Started on metformin 500 QD and glypizide 5 BID. Sliding scale insulin. Accu-checks according to ACHS. HTN: On carvedilol 6.25 BID and lisinopril 5 QD. Alcohol Abuse: Lorazepam 2 mg prn. Suspected UTI: UA does not appear to be a UTI. Discontinue Levaquin. PUB Prophylaxis: On Protonix. DVT Prophylaxis: Contraindication to anticoagulant due to GI bleed.
[2019-06-28 16:29] LABS: Cardiac Risk 5.7 (Less than 4.5)
--- NOTE | 2019-06-28 17:27 | CON ---
DATE OF CONSULTATION: I was consulted for Mr. Alaniz in the emergency room today. Apparently, he had come in, was admitted for history of melena and heme-positive stool. He came to emergency room for chest pain, which apparently had resolved. His hemoglobin was 14.9 on admission and 13.8 at 4 this morning, we are about to see him for this year for get him an upper endoscopy today, but he was not in the room. He has been on a full liquid diet. According to the nurses, there was a tray there, all of his clothes were in the room. The patient was not going to the bathroom and he did not inform the staff, he was going for a walk. I have informed the nurse to keep him n.p.o. after midnight and then call me if there is any urgent bleeding. Otherwise, I would tentatively post him for an EGD for tomorrow and we will do a full consult before that. Review the chart, there seems to be some issues with ongoing alcohol use, possible UTI and the concern for melena or GI bleeding. Otherwise, he has been very stable. If he becomes symptomatic or becomes a more emergent issue when he returns back to his room, I have told the nurse to call me back and re-evaluate him later today. Job ID: [id number]
[2019-06-28] MEDS: Atorvastatin Calcium 10 MG TAB PO SCH (20:28)
[2019-06-29 05:33] LABS: #Eosinphils 0.4 thou/uL (0.0-0.7); #Monocytes 0.5 thou/uL (0.11-0.59); #Neutrophils 3.6 thou/uL (1.40-6.50); %Basophils 0.3 % (0.0-1.0); %Eosinophils 5.6 % (0.0-10.0); %Lymphocytes 30.6 % (21.0-51.0); %Neutrophils 55.6 % (42.0-75.0); Hemoglobin 13.5 g/dL (14.0-18.0); Mean Corpuscular HGB CONC 33.7 g/dL (32.0-36.0); Mean Corpuscular Hemoglobin 30.1 pg (27.0-31.0); Mean Corpuscular Volume 89.4 fL (78.0-98.0); Mean Platelet Volume 8.4 fL (7.4-10.4); Platelet Count 203 thou/uL (130-400); RBC Distribution Width 13.3 % (11.5-14.5); Red Blood Cell (RBC) Count 4.49 mill/uL (4.70-6.10); White Blood Cell (WBC) Count 6.5 thou/uL (4.8-10.8)
[2019-06-29 05:52] LABS: Anion Gap 12 mmol/L (10-20); BUN (Urea Nitrogen) 10 mg/dL (8.4-25.7); Calc. Creatinine Clearance 87 mL/min (70-130); Carbon Dioxide 25 mmol/L (22-29); Chloride 103 mmol/L (98-107); Estimated GFR-MDRD 68; Glucose 124 mg/dL (70-105); Potassium 3.9 mmol/L (3.5-5.1); Sodium 136 mmol/L (136-145)
[2019-06-29] MEDS: Pantoprazole 40 MG VIAL IVP SCH (08:00)
[2019-06-29] MEDS: metFORMIN 500 MG TAB PO SCH (08:01)
[2019-06-29] MEDS: Carvedilol 6.25 MG TAB PO SCH ×2 (08:01→16:50)
[2019-06-29] MEDS: glipiZIDE 5 MG TAB PO SCH ×2 (08:01→16:15)
[2019-06-29] MEDS: Furosemide 40 MG/4 ML VIAL SLOW IVP SCH (08:03)
[2019-06-29] MEDS: Lisinopril 5 MG TAB PO SCH ×2 (08:03→21:14)
[2019-06-29] MEDS ORDERED: Lidocaine 1% PF 5 ML VIAL ONE (10:51)
[2019-06-29] MEDS ORDERED: PROPOFOL 200 MG/20 ML VIAL ONE (10:51)
--- NOTE | 2019-06-29 10:59 | NM ---
EXAM: NM Cardiac Stress W EF WF PROVIDED CLINICAL HISTORY: Chest pain COMPARISON: None RADIOPHARMACEUTICAL: 31.7 millicuries technetium 99m labeled sestamibi IV stress 29.6 millicuries technetium 99m labeled sestamibi IV rest FINDINGS: There is a moderate-large area of severely diminished radiotracer accumulation involving the basal to apical inferior wall, present at both stress and rest. Attenuation corrected images demonstrate a more normal distribution of radiotracer in this region. Gated data demonstrate global hypokinesis with calculated LVEF of 31%. [<>]. Calculated TID is 1.2. IMPRESSION: 1. No scintigraphic evidence for ischemia. Fixed defect at the inferior wall compatible with attenuat ion artifact. 2. Calculated LVEF 31%.
[2019-06-29] MEDS ORDERED: Regadenoson 0.4 MG/5 ML SYRINGE ONE (14:54)
--- NOTE | 2019-06-29 17:30 | PDOC.HOSPP ---
- Subjective Subjective: Patient had stress test this morning. Subsequently was taken down for EGD. Just completed that and is still sedated. - Objective Vital Signs & Weight: Vital Signs (12 hours) Temp Pulse Resp BP BP Pulse Ox 06/29/19 11:20 98.1 F 71 14 148/83 H 95 06/29/19 08:03 75 06/29/19 07:25 98.3 F 75 18 132/80 93 L Weight Weight 192 lb 1.6 oz I&O: 06/28/19 06/29/19 06/30/19 06:59 06:59 06:59 Intake Total 2450 Output Total 300 Balance 2150 Result Diagrams: 06/29/19 05:05 06/29/19 05:05 Additional Labs: Accuchecks 06/29/19 06/28/19 10:53 20:35 POC Glucose 115 H 135 H Hospitalist ROS - Medication Medications: Active Medications Generic Name Dose Route Start Last Admin Trade Name Freq PRN Reason Stop Dose Admin Atorvastatin Calcium 10 mg 06/28/19 21:00 06/28/19 20:28 Lipitor PO 10 mg HS ADAMS Administration Carvedilol 6.25 mg 06/28/19 08:00 06/29/19 16:50 Coreg PO Not Given BID-WM ADAMS Furosemide 40 mg 06/28/19 09:00 06/29/19 08:03 Lasix SLOW IVP Not Given DAILY ADAMS Glipizide 5 mg 06/28/19 07:30 06/29/19 16:15 Glucotrol PO Not Given BID-AC ADAMS Lisinopril 5 mg 06/28/19 09:00 06/29/19 08:03 Zestril PO Not Given BID ADAMS Metformin HCl 500 mg 06/28/19 08:00 06/29/19 08:01 Glucophage PO Not Given QAM-WM ADAMS Pantoprazole Sodium 40 mg 06/28/19 09:00 06/29/19 08:00 Protonix IVP 40 mg Q12HR ADAMS Administration - Exam General - other findings: Sedated, but moving all extremities. In PACU Neck: supple, symmetric, no JVD, no thyromegaly, no lymphadenopathy, no carotid bruit Heart: RRR, no murmur, no gallops, no rubs, normal peripheral pulses Respiratory: CTAB, no wheezes, no rales, no ronchi, normal chest expansion, no tachypnea Gastrointestinal: soft Extremities: no cyanosis, no clubbing, no edema Musculoskeletal: normal tone Hosp A/P (1) CHF (congestive heart failure), NYHA class III Code(s): I50.9 - HEART FAILURE, UNSPECIFIED Status: Acute (2) GI bleed Code(s): K92.2 - GASTROINTESTINAL HEMORRHAGE, UNSPECIFIED Status: Acute (3) Alcohol abuse Code(s): F10.10 - ALCOHOL ABUSE, UNCOMPLICATED Status: Acute (4) DM type 2 (diabetes mellitus, type 2) Status: Chronic Qualifiers: Chronic kidney disease stage: stage 2 (mild) (5) HTN (hypertension) Code(s): I10 - ESSENTIAL (PRIMARY) HYPERTENSION Status: Chronic Qualifiers: Hypertension type: essential hypertension Qualified Code(s): I10 - Essential (primary) hypertension - Plan Acute on Chronic Combined Systolic and Diastolic CHF NYHA Stage III: Will order echo. Diuresis with Lasix 40 IVP QD. Will monitor creatinine with AM run. Had reduced EF on stress test. No ischemia. Chest Pain and history of CAD: Relieved by nitroglycerin. Resolved now. Get lipid panel in AM run. Cardiolite stress test negative for ischemia. GI Bleed: Started on Protonix 40 BID. H&H stable. GI consulted. Just completed EGD. Findings not reported yet, but sounds like there was an ulcer. Will follow their recommendations. Diabetes Mellitus: Started on metformin 500 QD and glypizide 5 BID. Sliding scale insulin. Accu-checks according to ACHS. HTN: On carvedilol 6.25 BID and lisinopril 5 QD. Alcohol Abuse: Lorazepam 2 mg prn. Suspected UTI: UA does not appear to be a UTI. Discontinue Levaquin. PUB Prophylaxis: On Protonix. DVT Prophylaxis: Contraindication to anticoagulant due to GI bleed. Anticipate DC in am.
[2019-06-29] MEDS: Atorvastatin Calcium 10 MG TAB PO SCH (21:14)
--- NOTE | 2019-06-29 21:36 | CON ---
DATE OF CONSULTATION: 06/29/2019 HISTORY OF PRESENT ILLNESS: Mr. Alaniz is a 58-year-old gentleman who was admitted to the hospital yesterday when he presented with complaints of chest pain and 1 week of black stools. He has a history of significant alcohol abuse. He has had previous stents about 13 years ago. His hemoglobin was 14.9 on admission, 13.8 yesterday, and 13.5 today. I was consulted yesterday, I actually went to see him, but he was not in the room. He denies any more melenic stools. He has had a stress test so far that has been negative. He denies any dysphagia, weight loss, nausea, or vomiting. He does take Advil or Aleve about 2 a day as well as aspirin daily. He denies taking any antacids. PAST MEDICAL HISTORY: Hypertension, hyperlipidemia, diabetes type 2, alcohol abuse, coronary artery disease, previous stent placement. PAST SURGICAL HISTORY: Cholecystectomy, stent placement. ALLERGIES: NONE KNOWN. MEDICATIONS: At home probably taking aspirin. Medications here: 1. Tylenol. 2. Lipitor. 3. Carvedilol. 4. Glucose. 5. Furosemide. 6. Glipizide. 7. Hydralazine. 8. Hydrocodone. 9. Insulin sliding scale. 10. Lisinopril. 11. Lorazepam. 12. Metformin. 13. Morphine. 14. Protonix 40 IV q.12. SOCIAL HISTORY: The patient drinks alcohol excessively and used to smoke. In the past, he has used cocaine; denies any recent use. PHYSICAL EXAMINATION: VITAL SIGNS: Temperature is 98, pulse 71, blood pressure 140/83. GENERAL: He is resting comfortably in distress. LUNGS: Clear. HEART: Regular rate and rhythm without clicks, rubs, or murmurs. ABDOMEN: Soft, nontender. There is no rebound. There is no guarding. EXTREMITIES: No clubbing, cyanosis, or edema. LABORATORY DATA: Hemoglobin was 14.9 on admission, it is 13.5 today; white count 6.5, platelet count 203. Sodium 136, potassium 3.9, BUN and creatinine are 10 and 1.11. Liver function tests on admission were normal with AST and ALT of 13 and 11, and alkaline phosphatase of 146. Troponin was normal. Lipase was normal. UDS was not done this admission. Alcohol level was not done this admission. ASSESSMENT: This is a gentleman who reported a week's worth of melena, came in with chest pain, which is now resolved. He has had a negative stress test. He drinks excessive amount of beer and does take a lot of NSAIDs. In the past, he has used cocaine as well, but apparently is not now. He shows no signs of withdrawal. He has had a stable hemoglobin. I have been asked by the hospitalist service to perform an EGD to make sure he does not have an ulcer before he is discharged. RECOMMENDATIONS: 1. IV PPI. 2. Plan for EGD. Risks, benefits, and possible complications of endoscopy including perforation, bleeding, reaction to medication, and aspiration were all discussed with the patient. We will proceed today. Job ID: [id number]
[2019-06-30 07:33] LABS: #Eosinphils 0.4 thou/uL (0.0-0.7); #Lymphocytes 2.1 thou/uL (1.20-3.40); #Monocytes 0.7 thou/uL (0.11-0.59); #Neutrophils 3.7 thou/uL (1.40-6.50); %Basophils 0.4 % (0.0-1.0); %Eosinophils 5.5 % (0.0-10.0); %Lymphocytes 30.2 % (21.0-51.0); %Neutrophils 53.8 % (42.0-75.0); Hemoglobin 13.8 g/dL (14.0-18.0); Mean Corpuscular HGB CONC 34.7 g/dL (32.0-36.0); Mean Corpuscular Hemoglobin 30.8 pg (27.0-31.0); Mean Corpuscular Volume 88.9 fL (78.0-98.0); Platelet Count 196 thou/uL (130-400); RBC Distribution Width 13.1 % (11.5-14.5); Red Blood Cell (RBC) Count 4.48 mill/uL (4.70-6.10); White Blood Cell (WBC) Count 6.9 thou/uL (4.8-10.8)
[2019-06-30] MEDS: Carvedilol 6.25 MG TAB PO SCH (10:19)
[2019-06-30] MEDS: glipiZIDE 5 MG TAB PO SCH (10:19)
[2019-06-30] MEDS: Lisinopril 5 MG TAB PO SCH (10:20)
[2019-06-30] MEDS: metFORMIN 500 MG TAB PO SCH (10:20)
[2019-06-30] MEDS: Furosemide 40 MG/4 ML VIAL SLOW IVP SCH (10:20)
[2019-06-30 12:12] VITALS: TEMP 98.4
[2019-06-30 14:21] LABS: Anion Gap 13 mmol/L (10-20); BUN (Urea Nitrogen) 15 mg/dL (8.4-25.7); Calc. Creatinine Clearance 79 mL/min (70-130); Calcium 9.3 mg/dL (7.8-10.44); Carbon Dioxide 24 mmol/L (22-29); Chloride 103 mmol/L (98-107); Estimated GFR-MDRD 60; Glucose 85 mg/dL (70-105); Potassium 3.9 mmol/L (3.5-5.1); Sodium 136 mmol/L (136-145)
[2019-06-30 16:35] VITALS: BP 155/86
--- NOTE | 2019-06-30 18:10 | DIS ---
DATE OF ADMISSION: 06/28/2019 DATE OF DISCHARGE: 06/30/2019 DISCHARGE DIAGNOSES: Acute on chronic combined systolic and diastolic heart failure, acute GI bleed secondary to gastritis, alcohol abuse. SECONDARY DISCHARGE DIAGNOSES: Type 2 diabetes, hypertension, CAD s/p PCI CONSULTATIONS: Dr. Zachariah Fu with Gastroenterology. PROCEDURES: Nuclear stress test and upper endoscopy. BRIEF HISTORY OF PRESENT ILLNESS: This is a 58-year-old male patient with past medical history of CAD status post stent, type 2 diabetes, hypertension, who had presented to the emergency room with substernal chest pain, shortness of breath on exertion, peripheral edema, and black tarry stools for the past 1 week. The patient states that he was following with [facility] and the last time he had seen their doctors, they told him that everything was under control and did not send him prescriptions for any of his medications. The patient states that he recently had cataract surgery done last week. Upon arrival to the ER, the patient was noted to have a blood pressure of 171/103. The patient had a normal hemoglobin. The rest of his labs were unremarkable. The patient was given transdermal nitroglycerin, IV Protonix, IV Zofran, and IV Levaquin initially in the ER and was admitted for further workup. HOSPITAL COURSE: Acute GI bleed: Patient had Hb of 13, positive FOBT. The patient was started on IV Protonix. The patient underwent an EGD on 06/30, which showed findings of mild gastritis with no ulcer. Per GI, the patient can be discharged with Protonix 40 mg daily. The patient was advised to stop taking NSAIDs. The patient states that he was taking Aleve and ibuprofen on a regular basis with no clear indication. Family member states that the patient was taking it possibly due to anxiety. The patient was advised to only take Tylenol for pain and to avoid any NSAIDs. He was told that he could take his aspirin, however, this would increase his risk of GI bleeding, but in light of his history of CAD, the benefit of aspirin probably outweighs the risk. He will be taking Protonix to prevent any ulcer development. Acute systolic heart failure: The patient had reported increasing leg swelling. The patient states that he was drinking 4-5 beers on a daily basis. The patient was given IV Lasix during his hospitalization. The patient underwent a stress test, which showed a fixed defect in the inferior wall with an EF of 31%. The patient states that he has had an IA in the past. Given the patient's mild GI bleed, he was discharged on furosemide 20 mg p.o. daily p.r.n. for edema, atorvastatin 10 mg p.o. at bedtime, and Coreg 6.25 mg p.o. b.i.d. The patient was also discharged on lisinopril 5 mg twice daily since his blood pressures were elevated at 155 systolic. Hypertension: The patient was taking lisinopril as an outpatient, but it was recently discontinued since they told him his blood pressure normal. Blood pressures here were 171 on arrival and after starting lisinopril 5 mg p.o. b.i.d, his blood pressure improved to the 150s. The patient should follow up with his PCP in a week and have this titrated as an outpatient. Type 2 diabetes: The patient states he was taking insulin as an outpatient. He had a hemoglobin A1c checked in the hospitalization, which was 7.0. He will be discharged on metformin 500 mg p.o. q.a.m. Hyperlipidemia: The patient had an LDL of 120, HDL of 30, and total cholesterol of 171. He was discharged on atorvastatin 10 mg p.o. at bedtime given his history of CAD. Anemia: The patient had a hemoglobin of 13.8/39.8. He did present with some rectal bleeding. His vitamin B12 and folate levels were normal. His ferritin was 405.3. The patient should have his anemia worked up as an outpatient with his PCP. Depression: patiebt has history of anxiety/depression. He requested to be started on SSRI, but for now will defer to PCP given that this will need follow up to monitor for suicidal ideation with new treatment. He was advised to follow with [facility] if needed. DISCHARGE PHYSICAL EXAMINATION: VITAL SIGNS: Temperature 98.4, heart rate 97, respiratory rate 18, O2 saturation 96% on room air, blood pressure 155/86. GENERAL: The patient is alert, awake, oriented x3. CVS: Regular rate and rhythm with no murmurs, rubs, or gallops. LUNGS: Clear to auscultation bilaterally. ABDOMEN: Positive bowel sounds, soft, nontender, nondistended. EXTREMITIES: There is no edema. PSYCHIATRIC: The patient denies any suicidal ideation. PERTINENT LABORATORY DATA: CBC on 06/30: hemoglobin of 13.8, hematocrit 39.8. BMP on 06/30: creatinine of 1.23. Hemoglobin A1c on 06/30: A1c is 7.0. Ferritin on 06/30, is 405.34. Vitamin B12 on 06/30, is 284. Folate on 06/30, is 10. LFTs on 06/27, are normal. Troponin I 06/27 to 06/28: 0.018, then less than 0.010 x2. UA on 06/27: shows 500 leukocyte esterase, 21-50 white blood cells. Stool occult blood on 06/27, was positive. PERTINENT IMAGING: Chest x-ray on 06/27: shows mild vascular congestion. Nuclear stress test on 06/28: shows fixed defect of the inferior wall compatible with attenuation artifact. LVEF was 31%. Echocardiogram on 06/28: shows EF 30% to 35% with diastolic dysfunction likely. Mild MR, mild TR, mildly enlarged right atrium size. DISCHARGE DISPOSITION: Home. ACTIVITY: As tolerated. DIET: Diabetic and heart healthy diet. DISCHARGE MEDICATIONS: 1. Atorvastatin 10 mg p.o. at bedtime. 2. Coreg 6.25 mg p.o. b.i.d. 3. Furosemide 20 mg p.o. daily p.r.n. 4. Gabapentin 100 mg p.o. at bedtime. 5. Lisinopril 5 mg p.o. b.i.d. 6. Metformin 500 mg p.o. q.a.m. 7. Protonix 40 mg p.o. daily. DISCHARGE INSTRUCTIONS: The patient was advised to drink no more than 2 L of fluid a day due to his acute systolic heart failure. He was advised to start taking Protonix for his gastritis and avoid spicy foods and wait 2-3 hours after eating before lying down. He was advised to avoid NSAIDs, but can take the Tylenol. He was advised to take Lasix p.r.n. for peripheral edema. He was advised to start taking metformin daily for his diabetes and resume his aspirin. The patient was also prescribed gabapentin for diabetic neuropathy. The patient to follow up with his PCP in a week and can consider following up with a trichologist. Job ID: [id number] MTDD
--- NOTE | 2019-07-01 13:17 | OP ---
DATE OF PROCEDURE: 06/29/2019 PROCEDURE PERFORMED: Esophagogastroduodenoscopy and biopsy. PREPROCEDURE DIAGNOSES: 1. History of melena. 2. History of alcohol abuse. 3. Heavy nonsteroidal anti-inflammatory drug use. 4. Chest pain with negative cardiac workup. 5. Negative cardiac stress test. POSTPROCEDURE DIAGNOSES: 1. Mild erosive gastritis in the antrum. No stigmata of high risk of bleeding. Biopsies obtained. 2. Normal duodenum. 3. Normal esophagus. RECOMMENDATIONS: Avoid NSAIDs. Avoid alcohol. Prilosec or Protonix p.o. daily for 6-8 weeks. We will sign off at this time. If I can be of any further assistance in the patient's care, please do not hesitate to contact me. We will follow up on the gastric biopsies. ANESTHESIA: TIVA. PROCEDURE IN DETAIL: After the patient was informed of the risks, benefits, possible complications of endoscopy including perforation, bleeding, reaction to medication, and aspiration, informed consent was obtained. The patient was brought to the endoscopy suite, where he was sedated in gradual fashion. Once he was comfortable, bite block was placed inside the orifice. The esophagus was normal. Stomach was normal except for erosive gastritis in the antrum. There was no active hemorrhaging. Biopsies were obtained to rule out H pylori. Retroflexed views in the stomach were normal. The duodenum was evaluated in the bulb third portion was normal. The scope was removed. The patient tolerated the procedure well. There were no complications. Job ID: [id number]
== END 2019-06-30 16:41 | disposition home or self-care (01) ==
LOC: ERS 20:18 → 2SW 06-28 00:35 → ERHOLD 06-28 00:35 → 2SW 06-28 12:48
PROVIDERS: ADMIT Internal Medicine; ATTEND Internal Medicine
PROC: 0DB68ZX Excision of Stomach, Via Natural or Artificial Opening Endoscopic, Diagnostic (ICD-10-PCS; principal; 2019-06-29)
DX: K29.51 Unspecified chronic gastritis with bleeding (principal); I13.0 Hypertensive heart and chronic kidney disease with heart failure and stage 1 through stage 4 chronic kidney disease, or unspecified chronic kidney disease; E11.22 Type 2 diabetes mellitus with diabetic chronic kidney disease; N18.2 Chronic kidney disease, stage 2 (mild); I50.43 Acute on chronic combined systolic (congestive) and diastolic (congestive) heart failure; F10.10 Alcohol abuse, uncomplicated; R07.2 Precordial pain; R79.89 Other specified abnormal findings of blood chemistry; E78.5 Hyperlipidemia, unspecified; N40.0 Benign prostatic hyperplasia without lower urinary tract symptoms; F14.11 Cocaine abuse, in remission; I25.10 Atherosclerotic heart disease of native coronary artery without angina pectoris; D64.9 Anemia, unspecified; F41.9 Anxiety disorder, unspecified; F32.9 Major depressive disorder, single episode, unspecified; Z87.891 Personal history of nicotine dependence; Z91.14 Patient's other noncompliance with medication regimen; Z79.4 Long term (current) use of insulin; Z79.82 Long term (current) use of aspirin; Z79.899 Other long term (current) drug therapy
CPT/HCPCS: 36415; 36416; 71045; 78452; 80048; 80053; 80061; 81003; 81015; 82274; 82607; 82728; 82746; 83036; 83690; 83880; 84153; 84484; 85025; 88305; 88312; 93005; 93017; 93306; 94760; 96365; 96375; 96376; A9500; C9113; G0378; J1940; J1956; J2001; J2405; J2704; J2785

== ENCOUNTER 2019-08-13 17:24 | Emergency (ER) | payer SELFPAY ==
[2019-08-13 18:07] LABS: Bilirubin Negative (Negative); Blood, Urine 3+ (Negative); Clarity Clear (Clear); Glucose, Urine (Dipstick) Greater than 1000 mg/dL (Negative); Leukocyte 75 Leu/uL (Negative); Nitrite Negative (Negative); Protein, Urine (Dipstick) 50 mg/dL (Neg-Trace); Squamous Epithelial None Seen HPF (0-3); Urobilinogen Normal mg/dL (Less than 2)
[2019-08-13 18:08] LABS: Bacteria/HPF 2+ HPF (None Seen); RBC/HPF Greater than 50 HPF (0-3)
[2019-08-13 19:48] LABS: #Eosinphils 0.2 thou/uL (0.0-0.7); #Monocytes 0.6 thou/uL (0.11-0.59); #Neutrophils 3.1 thou/uL (1.40-6.50); %Basophils 0.4 % (0.0-1.0); %Eosinophils 3.3 % (0.0-10.0); %Lymphocytes 33.3 % (21.0-51.0); %Monocytes 10.7 % (0.0-10.0); %Neutrophils 52.3 % (42.0-75.0); Hemoglobin 14.2 g/dL (14.0-18.0); Mean Corpuscular HGB CONC 33.3 g/dL (32.0-36.0); Mean Corpuscular Hemoglobin 29.3 pg (27.0-31.0); Mean Corpuscular Volume 88.1 fL (78.0-98.0); Mean Platelet Volume 8.7 fL (7.4-10.4); Platelet Count 144 thou/uL (130-400); RBC Distribution Width 12.5 % (11.5-14.5); Red Blood Cell (RBC) Count 4.84 mill/uL (4.70-6.10); White Blood Cell (WBC) Count 5.9 thou/uL (4.8-10.8)
[2019-08-13 20:06] LABS: Anion Gap 12 mmol/L (10-20); BUN (Urea Nitrogen) 16 mg/dL (8.4-25.7); Calc. Creatinine Clearance 0 mL/min (70-130); Carbon Dioxide 25 mmol/L (22-29); Chloride 98 mmol/L (98-107); Estimated GFR-MDRD 58; Glucose 396 mg/dL (70-105); Potassium 4.2 mmol/L (3.5-5.1); Sodium 131 mmol/L (136-145)
[2019-08-13] MEDS ORDERED: HumaLOG 300 UNITS/3 ML VIAL ONE (20:24)
== END 2019-08-13 21:50 | disposition home or self-care (01) ==
LOC: ERS 17:24
DX: E11.65 Type 2 diabetes mellitus with hyperglycemia (principal); R31.9 Hematuria, unspecified; I25.2 Old myocardial infarction; E78.5 Hyperlipidemia, unspecified; I10 Essential (primary) hypertension; F41.9 Anxiety disorder, unspecified; F32.9 Major depressive disorder, single episode, unspecified
CPT/HCPCS: 36415; 36416; 80048; 81003; 81015; 85025; 87077; 87086; 87186; 96360

== ENCOUNTER 2020-10-09 11:47 | Inpatient (IN) | payer OTHER, SELFPAY ==
[2020-10-09 14:51] LABS: #Basophils 0.1 thou/uL (0.0-0.2); #Eosinphils 0.1 thou/uL (0.0-0.7); #Lymphocytes 1.7 thou/uL (1.20-3.40); #Monocytes 0.6 thou/uL (0.11-0.59); #Neutrophils 3.7 thou/uL (1.40-6.50); %Eosinophils 1.2 % (0.0-10.0); %Lymphocytes 27.5 % (21.0-51.0); %Monocytes 9.6 % (0.0-10.0); %Neutrophils 60.7 % (42.0-75.0); Hemoglobin 15.3 g/dL (14.0-18.0); Mean Corpuscular HGB CONC 33.1 g/dL (32.0-36.0); Mean Corpuscular Volume 93.8 fL (78.0-98.0); Mean Platelet Volume 7.8 fL (7.4-10.4); Platelet Count 172 thou/uL (130-400); RBC Distribution Width 12.4 % (11.5-14.5); Red Blood Cell (RBC) Count 4.93 mill/uL (4.70-6.10); White Blood Cell (WBC) Count 6.1 thou/uL (4.8-10.8)
[2020-10-09] MEDS ORDERED: Aspirin Chewable 81 MG TAB ONE (16:26)
[2020-10-09] MEDS ORDERED: Lorazepam 2 MG/ML VIAL ONE (16:26)
[2020-10-09] MEDS ORDERED: Nitroglycerin 2% Ointment 1 INCH/1 GM Packet ONE (16:26)
[2020-10-09] MEDS ORDERED: Enoxaparin Sodium 40 MG/0.4 ML SYRINGE SC SCH (16:45)
[2020-10-09 16:50] LABS: Albumin 3.6 g/dL (3.4-4.8)
[2020-10-09 16:51] LABS: Chloride 99 mmol/L (98-107); Potassium 4.3 mmol/L (3.5-5.1); Sodium 133 mmol/L (136-145)
[2020-10-09 16:52] LABS: Calcium 9.2 mg/dL (7.8-10.44)
[2020-10-09 16:53] LABS: Globulin 4.5 g/dL (2.4-3.5); Glucose 97 mg/dL (80-115); Protein, Total 8.1 g/dL (5.8-8.1)
[2020-10-09] MEDS ORDERED: Lorazepam 2 MG/ML VIAL SLOW IVP PRN (16:53)
[2020-10-09 16:54] LABS: Anion Gap 18 mmol/L (10-20); Bilirubin, Total 1.8 mg/dL (0.2-1.2); Carbon Dioxide 20 mmol/L (23-31)
[2020-10-09 16:55] LABS: Alkaline Phosphatase 223 U/L (40-110)
[2020-10-09 16:56] LABS: Calc. Creatinine Clearance 0 mL/min (70-130)
[2020-10-09 16:57] LABS: BUN (Urea Nitrogen) 9 mg/dL (8.4-25.7)
[2020-10-09 16:58] LABS: ALT (SGPT) 59 U/L (8-55); AST (SGOT) 75 U/L (5-34)
[2020-10-09] MEDS ORDERED: Furosemide 40 MG/4 ML VIAL ONE (16:58)
[2020-10-09] MEDS ORDERED: Diazepam 5 MG TAB PO PRN (16:59)
[2020-10-09] MEDS ORDERED: Diazepam 5 MG TAB PO SCH (17:00)
[2020-10-09] MEDS ORDERED: Thiamine HCl 200 MG/2 ML VIAL IM SCH (17:00)
[2020-10-09] MEDS ORDERED: Dextrose 50% Abboject 50 ML SYRINGE SLOW IVP PRN (17:10)
[2020-10-09] MEDS ORDERED: Dextrose 5% in Water 1,000 ML IV PRN (17:10)
[2020-10-09 17:38] LABS: Troponin I 0.023 ng/mL (< 0.028)
[2020-10-09] MEDS: Furosemide 40 MG/4 ML VIAL SLOW IVP SCH (18:32)
[2020-10-09 19:44] LABS: Troponin I 0.026 ng/mL (< 0.028)
[2020-10-09] MEDS: Atorvastatin Calcium 10 MG TAB PO SCH (21:32)
[2020-10-09] MEDS: Lisinopril 5 MG TAB PO SCH (21:32)
[2020-10-09] MEDS: Famotidine 20 MG TAB PO SCH (21:32)
[2020-10-09 22:36] LABS: HBCM Index 0.09 S/CO (0-0.79); Hep A IgM AB Non-Reactive (NonReactive); Hep A IgM S/CO 0.19 S/CO (0-0.79); Hep B Surf Ag Non-Reactive S/CO (NonReactive); Hep C IgG Ab Non-Reactive (NonReactive); Hep C Index 0.24 S/CO (0-0.79); Hepatitis B Core IgM Abs Non-Reactive (NonReactive)
[2020-10-10 02:11] LABS: SARS-CoV-2 PCR by NAA Not Detected (NotDetected)
[2020-10-10 05:01] LABS: #Eosinphils 0.1 thou/uL (0.0-0.7); #Lymphocytes 1.1 thou/uL (1.20-3.40); #Monocytes 0.5 thou/uL (0.11-0.59); #Neutrophils 2.9 thou/uL (1.40-6.50); %Basophils 0.8 % (0.0-1.0); %Eosinophils 1.5 % (0.0-10.0); %Lymphocytes 23.3 % (21.0-51.0); %Neutrophils 63.5 % (42.0-75.0); Hemoglobin 13.6 g/dL (14.0-18.0); Mean Corpuscular HGB CONC 31.7 g/dL (32.0-36.0); Mean Corpuscular Hemoglobin 29.6 pg (27.0-31.0); Mean Corpuscular Volume 93.4 fL (78.0-98.0); Mean Platelet Volume 7.9 fL (7.4-10.4); Platelet Count 162 thou/uL (130-400); RBC Distribution Width 12.4 % (11.5-14.5); Red Blood Cell (RBC) Count 4.59 mill/uL (4.70-6.10); White Blood Cell (WBC) Count 4.6 thou/uL (4.8-10.8)
[2020-10-10 05:11] LABS: Hemoglobin A1c 6.2 % (4.0-6.0)
[2020-10-10] MEDS: Furosemide 40 MG/4 ML VIAL SLOW IVP SCH ×2 (05:13→17:00)
[2020-10-10 05:27] LABS: ALT (SGPT) 41 U/L (8-55); AST (SGOT) 40 U/L (5-34); Albumin 3.1 g/dL (3.4-4.8); Alkaline Phosphatase 190 U/L (40-110); Anion Gap 15 mmol/L (10-20); BUN (Urea Nitrogen) 16 mg/dL (8.4-25.7); Bilirubin, Total 1.8 mg/dL (0.2-1.2); Calc. Creatinine Clearance 97 mL/min (70-130); Calcium 8.8 mg/dL (7.8-10.44); Carbon Dioxide 23 mmol/L (23-31); Chloride 99 mmol/L (98-107); Cholesterol 139 mg/dl (< 200 Desired); Globulin 3.6 g/dL (2.4-3.5); Glucose 143 mg/dL (80-115); HDL Cholesterol 35 mg/dL (>60 Neg Risk); LDL Cholesterol, Calculated 83 mg/dL; Magnesium 1.7 mg/dL (1.6-2.6); Potassium 3.5 mmol/L (3.5-5.1); Protein, Total 6.7 g/dL (5.8-8.1); Sodium 133 mmol/L (136-145); Triglycerides 107 mg/dL (Less than 150)
[2020-10-10] MEDS ORDERED: Carvedilol 6.25 MG TAB PO SCH (08:00)
[2020-10-10] MEDS: Aspirin Chewable 81 MG TAB PO SCH (08:20)
[2020-10-10] MEDS: Folic Acid 1 MG TAB PO SCH (08:20)
[2020-10-10] MEDS: Magnesium Oxide 400 MG TAB PO SCH (08:20)
[2020-10-10] MEDS: Famotidine 20 MG TAB PO SCH ×2 (08:20→20:29)
[2020-10-10] MEDS: Multivitamin W/ Minerals 1 TAB PO SCH (08:20)
[2020-10-10] MEDS: Enoxaparin Sodium 40 MG/0.4 ML SYRINGE SC SCH (08:20)
[2020-10-10] MEDS: Lisinopril 5 MG TAB PO SCH ×2 (08:21→20:28)
[2020-10-10] MEDS: Thiamine 100 MG TAB PO SCH (08:21)
[2020-10-10] MEDS: Diazepam 5 MG TAB PO PRN ×2 (12:12→20:29)
[2020-10-10] MEDS: Carvedilol 6.25 MG TAB PO SCH (17:00)
[2020-10-10] MEDS: Atorvastatin Calcium 10 MG TAB PO SCH (20:29)
[2020-10-11] MEDS: Furosemide 40 MG/4 ML VIAL SLOW IVP SCH ×2 (05:29→17:47)
[2020-10-11] MEDS: Carvedilol 6.25 MG TAB PO SCH ×2 (08:58→17:47)
[2020-10-11] MEDS: Folic Acid 1 MG TAB PO SCH (08:59)
[2020-10-11] MEDS: Famotidine 20 MG TAB PO SCH ×2 (08:59→20:33)
[2020-10-11] MEDS: Magnesium Oxide 400 MG TAB PO SCH (08:59)
[2020-10-11] MEDS: Multivitamin W/ Minerals 1 TAB PO SCH (08:59)
[2020-10-11] MEDS: Aspirin Chewable 81 MG TAB PO SCH (09:00)
[2020-10-11] MEDS: Thiamine 100 MG TAB PO SCH (09:00)
[2020-10-11] MEDS: Lisinopril 5 MG TAB PO SCH ×2 (09:00→20:33)
[2020-10-11] MEDS: Enoxaparin Sodium 40 MG/0.4 ML SYRINGE SC SCH (09:00)
[2020-10-11] MEDS: Diazepam 5 MG TAB PO PRN ×2 (12:45→20:34)
[2020-10-11] MEDS: Atorvastatin Calcium 10 MG TAB PO SCH (20:33)
[2020-10-12] MEDS: Furosemide 40 MG/4 ML VIAL SLOW IVP SCH ×2 (06:05→17:38)
[2020-10-12] MEDS: HumaLOG 300 UNITS/3 ML VIAL SC PRN ×2 (06:09→17:40)
[2020-10-12 08:46] LABS: #Eosinphils 0.1 thou/uL (0.0-0.7); #Lymphocytes 1.2 thou/uL (1.20-3.40); #Monocytes 0.6 thou/uL (0.11-0.59); #Neutrophils 2.3 thou/uL (1.40-6.50); %Basophils 0.6 % (0.0-1.0); %Eosinophils 2.1 % (0.0-10.0); %Lymphocytes 28.8 % (21.0-51.0); %Monocytes 13.2 % (0.0-10.0); %Neutrophils 55.3 % (42.0-75.0); Hemoglobin 13.2 g/dL (14.0-18.0); Mean Corpuscular HGB CONC 33.1 g/dL (32.0-36.0); Mean Corpuscular Hemoglobin 31.2 pg (27.0-31.0); Mean Corpuscular Volume 94.4 fL (78.0-98.0); Mean Platelet Volume 7.6 fL (7.4-10.4); Platelet Count 136 thou/uL (130-400); RBC Distribution Width 12.3 % (11.5-14.5); Red Blood Cell (RBC) Count 4.24 mill/uL (4.70-6.10); White Blood Cell (WBC) Count 4.2 thou/uL (4.8-10.8)
[2020-10-12 09:08] LABS: Anion Gap 12 mmol/L (10-20); BUN (Urea Nitrogen) 24 mg/dL (8.4-25.7); Calc. Creatinine Clearance 88 mL/min (70-130); Calcium 8.6 mg/dL (7.8-10.44); Carbon Dioxide 30 mmol/L (23-31); Chloride 95 mmol/L (98-107); Glucose 130 mg/dL (80-115); Potassium 3.4 mmol/L (3.5-5.1); Sodium 134 mmol/L (136-145)
[2020-10-12] MEDS: Aspirin Chewable 81 MG TAB PO SCH (09:53)
[2020-10-12] MEDS: Folic Acid 1 MG TAB PO SCH (09:53)
[2020-10-12] MEDS: Famotidine 20 MG TAB PO SCH (09:53)
[2020-10-12] MEDS: Magnesium Oxide 400 MG TAB PO SCH (09:54)
[2020-10-12] MEDS: Carvedilol 6.25 MG TAB PO SCH ×2 (09:54→17:38)
[2020-10-12] MEDS: Enoxaparin Sodium 40 MG/0.4 ML SYRINGE SC SCH (09:55)
[2020-10-12] MEDS: Lisinopril 5 MG TAB PO SCH (09:55)
[2020-10-12] MEDS: Multivitamin W/ Minerals 1 TAB PO SCH (09:55)
[2020-10-12] MEDS: Thiamine 100 MG TAB PO SCH (09:55)
[2020-10-12] MEDS ORDERED: Diazepam 5 MG TAB PO SCH (18:00)
[2020-10-12] MEDS: Lisinopril 10 MG TAB PO SCH (20:23)
[2020-10-12] MEDS: Atorvastatin Calcium 10 MG TAB PO SCH (20:23)
[2020-10-13 04:45] LABS: #Eosinphils 0.1 thou/uL (0.0-0.7); #Lymphocytes 1.2 thou/uL (1.20-3.40); #Monocytes 0.6 thou/uL (0.11-0.59); #Neutrophils 2.8 thou/uL (1.40-6.50); %Basophils 0.5 % (0.0-1.0); %Eosinophils 2.2 % (0.0-10.0); %Lymphocytes 26.2 % (21.0-51.0); %Monocytes 11.8 % (0.0-10.0); %Neutrophils 59.4 % (42.0-75.0); Hemoglobin 13.5 g/dL (14.0-18.0); Mean Corpuscular HGB CONC 32.5 g/dL (32.0-36.0); Mean Corpuscular Hemoglobin 30.6 pg (27.0-31.0); Mean Corpuscular Volume 94.1 fL (78.0-98.0); Mean Platelet Volume 7.9 fL (7.4-10.4); Platelet Count 150 thou/uL (130-400); RBC Distribution Width 12.3 % (11.5-14.5); Red Blood Cell (RBC) Count 4.41 mill/uL (4.70-6.10); White Blood Cell (WBC) Count 4.7 thou/uL (4.8-10.8)
[2020-10-13 05:02] LABS: Anion Gap 15 mmol/L (10-20); BUN (Urea Nitrogen) 27 mg/dL (8.4-25.7); Calc. Creatinine Clearance 80 mL/min (70-130); Calcium 8.7 mg/dL (7.8-10.44); Carbon Dioxide 27 mmol/L (23-31); Chloride 96 mmol/L (98-107); Glucose 134 mg/dL (80-115); Potassium 3.5 mmol/L (3.5-5.1); Sodium 134 mmol/L (136-145)
[2020-10-13] MEDS: Furosemide 40 MG/4 ML VIAL SLOW IVP SCH ×2 (05:03→16:55)
[2020-10-13] MEDS: HumaLOG 300 UNITS/3 ML VIAL SC PRN ×2 (06:45→16:56)
[2020-10-13] MEDS: Folic Acid 1 MG TAB PO SCH (08:09)
[2020-10-13] MEDS: Multivitamin W/ Minerals 1 TAB PO SCH (08:09)
[2020-10-13] MEDS: Thiamine 100 MG TAB PO SCH (08:09)
[2020-10-13] MEDS: Carvedilol 6.25 MG TAB PO SCH ×2 (08:10→16:56)
[2020-10-13] MEDS: Lisinopril 10 MG TAB PO SCH ×2 (08:10→20:54)
[2020-10-13] MEDS: Magnesium Oxide 400 MG TAB PO SCH (08:10)
[2020-10-13] MEDS: Atorvastatin Calcium 10 MG TAB PO SCH (20:54)
[2020-10-14 04:21] LABS: Hemoglobin 13.2 g/dL (14.0-18.0); Mean Corpuscular HGB CONC 32.1 g/dL (32.0-36.0); Mean Corpuscular Hemoglobin 30.2 pg (27.0-31.0); Mean Corpuscular Volume 94.1 fL (78.0-98.0); Mean Platelet Volume 7.7 fL (7.4-10.4); Platelet Count 167 thou/uL (130-400); RBC Distribution Width 12.2 % (11.5-14.5); Red Blood Cell (RBC) Count 4.39 mill/uL (4.70-6.10); White Blood Cell (WBC) Count 4.4 thou/uL (4.8-10.8)
[2020-10-14 04:34] LABS: Anion Gap 13 mmol/L (10-20); BUN (Urea Nitrogen) 28 mg/dL (8.4-25.7); Calc. Creatinine Clearance 80 mL/min (70-130); Calcium 8.6 mg/dL (7.8-10.44); Carbon Dioxide 27 mmol/L (23-31); Chloride 99 mmol/L (98-107); Glucose 152 mg/dL (80-115); Potassium 3.4 mmol/L (3.5-5.1); Sodium 136 mmol/L (136-145)
[2020-10-14 04:54] LABS: Band 3 % (5-11); Lymphocytes 33 % (21-51); MDiff Complete? YES; Monocytes 18 % (0-10); Neutrophil 46 % (42-75); Platelet Morphology Comment Appears Adequate
[2020-10-14] MEDS: Furosemide 40 MG/4 ML VIAL SLOW IVP SCH (05:01)
[2020-10-14] MEDS: Folic Acid 1 MG TAB PO SCH (08:07)
[2020-10-14] MEDS: Thiamine 100 MG TAB PO SCH (08:07)
[2020-10-14] MEDS: Magnesium Oxide 400 MG TAB PO SCH (08:07)
[2020-10-14] MEDS: Multivitamin W/ Minerals 1 TAB PO SCH (08:08)
[2020-10-14] MEDS ORDERED: Regadenoson 0.4 MG/5 ML SYRINGE ONE (10:25)
[2020-10-14] MEDS: Lisinopril 10 MG TAB PO SCH ×2 (11:51→20:58)
[2020-10-14] MEDS: Carvedilol 6.25 MG TAB PO SCH ×2 (11:51→15:50)
[2020-10-14] MEDS: Furosemide 40 MG TAB PO SCH (15:50)
[2020-10-14] MEDS: HumaLOG 300 UNITS/3 ML VIAL SC PRN ×2 (18:55→21:01)
[2020-10-14] MEDS: Diazepam 5 MG TAB PO PRN (20:59)
[2020-10-14] MEDS: Atorvastatin Calcium 10 MG TAB PO SCH (20:59)
[2020-10-15 04:39] LABS: #Eosinphils 0.1 thou/uL (0.0-0.7); #Lymphocytes 1.4 thou/uL (1.20-3.40); #Monocytes 0.8 thou/uL (0.11-0.59); #Neutrophils 2.8 thou/uL (1.40-6.50); %Basophils 0.6 % (0.0-1.0); %Eosinophils 2.6 % (0.0-10.0); %Lymphocytes 27.4 % (21.0-51.0); %Monocytes 14.6 % (0.0-10.0); %Neutrophils 54.6 % (42.0-75.0); Hemoglobin 13.6 g/dL (14.0-18.0); Mean Corpuscular HGB CONC 32.5 g/dL (32.0-36.0); Mean Corpuscular Hemoglobin 30.6 pg (27.0-31.0); Mean Corpuscular Volume 94.2 fL (78.0-98.0); Mean Platelet Volume 8.1 fL (7.4-10.4); Platelet Count 180 thou/uL (130-400); RBC Distribution Width 12.2 % (11.5-14.5); Red Blood Cell (RBC) Count 4.44 mill/uL (4.70-6.10); White Blood Cell (WBC) Count 5.2 thou/uL (4.8-10.8)
[2020-10-15 05:02] LABS: Anion Gap 15 mmol/L (10-20); BUN (Urea Nitrogen) 27 mg/dL (8.4-25.7); Calc. Creatinine Clearance 77 mL/min (70-130); Calcium 8.7 mg/dL (7.8-10.44); Carbon Dioxide 25 mmol/L (23-31); Chloride 98 mmol/L (98-107); Glucose 182 mg/dL (80-115); Potassium 3.3 mmol/L (3.5-5.1); Sodium 135 mmol/L (136-145)
[2020-10-15] MEDS: Carvedilol 6.25 MG TAB PO SCH (08:33)
[2020-10-15] MEDS: Magnesium Oxide 400 MG TAB PO SCH (08:33)
[2020-10-15] MEDS: Multivitamin W/ Minerals 1 TAB PO SCH (08:34)
[2020-10-15] MEDS: Lisinopril 10 MG TAB PO SCH (08:34)
[2020-10-15] MEDS: Thiamine 100 MG TAB PO SCH (08:35)
[2020-10-15] MEDS: Folic Acid 1 MG TAB PO SCH (08:35)
[2020-10-15] MEDS: Furosemide 40 MG TAB PO SCH ×2 (08:35→12:48)
[2020-10-15] MEDS ORDERED: Aspirin 81 mg Enteric Coated Tablet PO SCH (09:00)
[2020-10-15] MEDS ORDERED: Potassium Chloride 20 MEQ TAB PO SCH (09:45)
[2020-10-15 09:57] VITALS: TEMP 98.4
[2020-10-15 10:06] VITALS: BMI 30.5
[2020-10-15 12:24] VITALS: BP 149/82
[2020-10-15] MEDS: HumaLOG 300 UNITS/3 ML VIAL SC PRN (12:49)
== END 2020-10-15 14:10 | disposition home or self-care (01) | DRG 291 ==
LOC: ERS 11:47 → 2NO 16:26
PROVIDERS: ADMIT Internal Medicine; ATTEND Internal Medicine
DX: I13.0 Hypertensive heart and chronic kidney disease with heart failure and stage 1 through stage 4 chronic kidney disease, or unspecified chronic kidney disease (principal); I50.43 Acute on chronic combined systolic (congestive) and diastolic (congestive) heart failure; E87.1 Hypo-osmolality and hyponatremia; I42.9 Cardiomyopathy, unspecified; E87.6 Hypokalemia; Z20.822 Contact with and (suspected) exposure to COVID-19; R94.5 Abnormal results of liver function studies; E88.09 Other disorders of plasma-protein metabolism, not elsewhere classified; F41.9 Anxiety disorder, unspecified; F32.9 Major depressive disorder, single episode, unspecified; I25.10 Atherosclerotic heart disease of native coronary artery without angina pectoris; N18.2 Chronic kidney disease, stage 2 (mild); E11.22 Type 2 diabetes mellitus with diabetic chronic kidney disease; R74.01 Elevation of levels of liver transaminase levels; I08.1 Rheumatic disorders of both mitral and tricuspid valves; E78.5 Hyperlipidemia, unspecified; Z95.5 Presence of coronary angioplasty implant and graft; Z91.14 Patient's other noncompliance with medication regimen; I25.2 Old myocardial infarction; Z90.49 Acquired absence of other specified parts of digestive tract; Z98.42 Cataract extraction status, left eye; Z98.41 Cataract extraction status, right eye; Z86.73 Personal history of transient ischemic attack (TIA), and cerebral infarction without residual deficits; Z79.82 Long term (current) use of aspirin; Z79.899 Other long term (current) drug therapy; Z79.84 Long term (current) use of oral hypoglycemic drugs; Z83.3 Family history of diabetes mellitus; Z80.8 Family history of malignant neoplasm of other organs or systems
CPT/HCPCS: 36415; 36416; 71045; 76705; 78452; 80048; 80053; 80061; 80074; 82274; 83036; 83735; 83880; 84100; 84484; 85025; 87635; 93005; 93017; 93306; 96374; 96375; A9500; J1650; J1815; J1940; J2060; J2785; U0003; U0005

== ENCOUNTER 2021-01-09 21:08 | Inpatient (IN) | payer MEDICAID, OTHER, SELFPAY ==
[2021-01-09] MEDS ORDERED: Pantoprazole 40 MG VIAL ONE (21:44)
[2021-01-09 21:46] LABS: #Eosinphils 0.1 thou/uL (0.0-0.7); #Lymphocytes 2.3 thou/uL (1.20-3.40); #Monocytes 0.5 thou/uL (0.11-0.59); #Neutrophils 4.4 thou/uL (1.40-6.50); %Basophils 0.6 % (0.0-1.0); %Eosinophils 1.6 % (0.0-10.0); %Lymphocytes 30.9 % (21.0-51.0); %Monocytes 7.1 % (0.0-10.0); %Neutrophils 59.9 % (42.0-75.0); Hemoglobin 12.7 g/dL (14.0-18.0); Mean Corpuscular HGB CONC 34.1 g/dL (32.0-36.0); Mean Corpuscular Hemoglobin 31.3 pg (27.0-31.0); Mean Corpuscular Volume 91.5 fL (78.0-98.0); Mean Platelet Volume 7.2 fL (7.4-10.4); Platelet Count 161 thou/uL (130-400); RBC Distribution Width 13.7 % (11.5-14.5); Red Blood Cell (RBC) Count 4.05 mill/uL (4.70-6.10); White Blood Cell (WBC) Count 7.4 thou/uL (4.8-10.8)
[2021-01-09] MEDS ORDERED: Multivitamins, Adult 10 ML, Thiamine HCl 100 MG, Folic Acid 1 MG in Dextrose 5 %-0.45 %... IV SCH (22:00)
[2021-01-09 22:12] LABS: ALT (SGPT) 20 U/L (8-55); AST (SGOT) 35 U/L (5-34); Albumin 3.3 g/dL (3.4-4.8); Alkaline Phosphatase 238 U/L (40-110); Anion Gap 19 mmol/L (10-20); BUN (Urea Nitrogen) 8 mg/dL (8.4-25.7); Bilirubin, Total 1.2 mg/dL (0.2-1.2); Calc. Creatinine Clearance 0 mL/min (70-130); Calcium 8.1 mg/dL (7.8-10.44); Carbon Dioxide 14 mmol/L (23-31); Chloride 93 mmol/L (98-107); Glucose 106 mg/dL (80-115); Lipase 19 U/L (8-78); Potassium 4.5 mmol/L (3.5-5.1); Protein, Total 7.3 g/dL (5.8-8.1); Sodium 121 mmol/L (136-145)
[2021-01-09 23:22] LABS: Bilirubin Negative (Negative); Blood, Urine 2+ (Negative); Clarity Turbid (Clear); Glucose, Urine (Dipstick) Normal (Negative); Ketone, Urine Negative (Negative); Leukocyte 500 Leu/uL (Negative); Nitrite Negative (Negative); Protein, Urine (Dipstick) 100 mg/dL (Neg-Trace); Specific Gravity, Urine 1.005 (1.002-1.036); Squamous Epithelial 0-3 HPF (0-3); Urobilinogen Normal mg/dL (Less than 2); WBC/HPF Greater than 50 HPF (0-3)
[2021-01-09 23:23] LABS: Bacteria/HPF 1+ HPF (None Seen)
[2021-01-09] MEDS ORDERED: cefTRIAXone\\ROCEPHIN 2 GM VIAL ONE (23:34)
[2021-01-09] MEDS ORDERED: Morphine 2 MG/ML VIAL SLOW IVP PRN (23:44)
[2021-01-09] MEDS ORDERED: hydrALAZINE 20 MG/ML VIAL SLOW IVP PRN (23:44)
[2021-01-09] MEDS ORDERED: Lorazepam 2 MG/ML VIAL SLOW IVP PRN (23:46)
[2021-01-09] MEDS ORDERED: HYDROcodone/Acetaminophen 5/325 mg Tablet PO PRN (23:48)
[2021-01-09] MEDS ORDERED: Calcium Carbonate 500 MG ChewTAB PO PRN (23:48)
[2021-01-10] MEDS ORDERED: Bumetanide 1 MG/4 ML VIAL IVP SCH (00:30)
[2021-01-10 00:47] LABS: Anion Gap 17 mmol/L (10-20); BUN (Urea Nitrogen) 8 mg/dL (8.4-25.7); Calc. Creatinine Clearance 0 mL/min (70-130); Calcium 8.2 mg/dL (7.8-10.44); Carbon Dioxide 15 mmol/L (23-31); Chloride 95 mmol/L (98-107); Glucose 110 mg/dL (80-115); Magnesium 1.9 mg/dL (1.6-2.6); Potassium 4.7 mmol/L (3.5-5.1); Sodium 122 mmol/L (136-145); Uric Acid 5.3 mg/dL (3.5-7.2)
[2021-01-10 03:15] VITALS: BMI 32.3
[2021-01-10] MEDS: Sodium Bicarbonate Tab 325 MG TAB PO SCH ×4 (04:18→17:15)
[2021-01-10] MEDS ORDERED: Potassium Chloride 10 MEQ TAB PO SCH (09:00)
[2021-01-10] MEDS: Aspirin Chewable 81 MG TAB PO SCH (09:37)
[2021-01-10] MEDS: Enoxaparin Sodium 30 MG/0.3 ML SYRINGE SC SCH (09:37)
[2021-01-10] MEDS: Carvedilol 6.25 MG TAB PO SCH ×2 (09:37→21:11)
[2021-01-10] MEDS: Thiamine 100 MG TAB PO SCH (09:37)
[2021-01-10] MEDS: Famotidine 20 MG TAB PO SCH ×2 (09:37→21:11)
[2021-01-10] MEDS: Cyanocobalamin (Vitamin B-12) 1,000 MCG TAB PO SCH (09:37)
[2021-01-10] MEDS: Zinc Sulfate 220 MG CAP PO SCH (09:38)
[2021-01-10] MEDS: Lisinopril 10 MG TAB PO SCH ×2 (09:38→21:11)
[2021-01-10] MEDS: Folic Acid 1 MG TAB PO SCH (09:38)
[2021-01-10] MEDS: Ondansetron PF 4 MG/2 ML Vial IVP PRN ×2 (09:45→17:15)
[2021-01-10 10:10] LABS: Anion Gap 17 mmol/L (10-20); BUN (Urea Nitrogen) 7 mg/dL (8.4-25.7); Calc. Creatinine Clearance 116 mL/min (70-130); Calcium 8.6 mg/dL (7.8-10.44); Carbon Dioxide 18 mmol/L (23-31); Chloride 96 mmol/L (98-107); Glucose 132 mg/dL (80-115); Sodium 127 mmol/L (136-145)
[2021-01-10] MEDS ORDERED: Spironolactone 100 MG TAB PO SCH (10:15)
[2021-01-10 15:45] LABS: SARS-CoV-2 PCR by NAA Not Detected (NotDetected)
[2021-01-10 16:21] LABS: Hemoglobin A1c 5.6 % (4.0-6.0)
[2021-01-10 16:33] LABS: Anion Gap 17 mmol/L (10-20); BUN (Urea Nitrogen) 8 mg/dL (8.4-25.7); Calc. Creatinine Clearance 110 mL/min (70-130); Calcium 8.8 mg/dL (7.8-10.44); Carbon Dioxide 17 mmol/L (23-31); Chloride 95 mmol/L (98-107); Glucose 131 mg/dL (80-115); Potassium 4.4 mmol/L (3.5-5.1); Sodium 125 mmol/L (136-145)
[2021-01-10 18:17] LABS: Anion Gap 20 mmol/L (10-20); BUN (Urea Nitrogen) 9 mg/dL (8.4-25.7); Calc. Creatinine Clearance 107 mL/min (70-130); Calcium 8.8 mg/dL (7.8-10.44); Carbon Dioxide 18 mmol/L (23-31); Chloride 93 mmol/L (98-107); Glucose 134 mg/dL (80-115); Potassium 4.5 mmol/L (3.5-5.1); Sodium 126 mmol/L (136-145)
[2021-01-10] MEDS: Promethazine 25 MG TAB PO PRN (18:55)
[2021-01-10] MEDS: Gabapentin 100 MG CAP PO SCH (21:10)
[2021-01-10] MEDS: Doxazosin Mesylate 1 MG TAB PO SCH (21:11)
[2021-01-11] MEDS: Sodium Bicarbonate Tab 325 MG TAB PO SCH ×4 (01:00→16:29)
[2021-01-11] MEDS: Promethazine 25 MG TAB PO PRN (01:01)
[2021-01-11 01:09] LABS: Anion Gap 16 mmol/L (10-20); BUN (Urea Nitrogen) 10 mg/dL (8.4-25.7); Calc. Creatinine Clearance 99 mL/min (70-130); Calcium 8.7 mg/dL (7.8-10.44); Carbon Dioxide 19 mmol/L (23-31); Chloride 95 mmol/L (98-107); Glucose 114 mg/dL (80-115); Potassium 4.5 mmol/L (3.5-5.1); Sodium 125 mmol/L (136-145)
[2021-01-11] MEDS: Bumetanide 1 MG/4 ML VIAL IVP SCH ×2 (05:32→16:31)
[2021-01-11 06:12] LABS: Anion Gap 18 mmol/L (10-20); BUN (Urea Nitrogen) 11 mg/dL (8.4-25.7); Calc. Creatinine Clearance 87 mL/min (70-130); Calcium 8.8 mg/dL (7.8-10.44); Carbon Dioxide 20 mmol/L (23-31); Chloride 94 mmol/L (98-107); Glucose 111 mg/dL (80-115); Potassium 4.5 mmol/L (3.5-5.1); Sodium 127 mmol/L (136-145)
[2021-01-11 06:28] LABS: Troponin I Less than 0.010 ng/mL (< 0.028)
[2021-01-11] MEDS ORDERED: Spironolactone 100 MG TAB PO SCH (08:00)
[2021-01-11] MEDS: Carvedilol 6.25 MG TAB PO SCH ×2 (08:37→20:08)
[2021-01-11] MEDS: Famotidine 20 MG TAB PO SCH ×2 (08:37→20:08)
[2021-01-11] MEDS: Zinc Sulfate 220 MG CAP PO SCH (08:37)
[2021-01-11] MEDS: Aspirin Chewable 81 MG TAB PO SCH (08:37)
[2021-01-11] MEDS: Folic Acid 1 MG TAB PO SCH (08:37)
[2021-01-11] MEDS: Cyanocobalamin (Vitamin B-12) 1,000 MCG TAB PO SCH (08:37)
[2021-01-11] MEDS: Ondansetron PF 4 MG/2 ML Vial IVP PRN (08:38)
[2021-01-11] MEDS: Thiamine 100 MG TAB PO SCH (08:38)
[2021-01-11] MEDS: Gabapentin 100 MG CAP PO SCH ×3 (08:38→20:09)
[2021-01-11] MEDS: Enoxaparin Sodium 30 MG/0.3 ML SYRINGE SC SCH (08:38)
[2021-01-11] MEDS: Lisinopril 10 MG TAB PO SCH ×2 (08:38→20:08)
[2021-01-11] MEDS: Doxazosin Mesylate 1 MG TAB PO SCH (20:24)
[2021-01-12] MEDS: Sodium Bicarbonate Tab 325 MG TAB PO SCH ×5 (00:38→23:48)
[2021-01-12] MEDS: Bumetanide 1 MG/4 ML VIAL IVP SCH (05:41)
[2021-01-12 07:11] LABS: ALT (SGPT) 19 U/L (8-55); AST (SGOT) 32 U/L (5-34); Albumin 3.3 g/dL (3.4-4.8); Alkaline Phosphatase 210 U/L (40-110); Anion Gap 14 mmol/L (10-20); BUN (Urea Nitrogen) 17 mg/dL (8.4-25.7); Bilirubin, Total 1.2 mg/dL (0.2-1.2); Calc. Creatinine Clearance 64 mL/min (70-130); Carbon Dioxide 26 mmol/L (23-31); Chloride 93 mmol/L (98-107); Globulin 4.1 g/dL (2.4-3.5); Glucose 140 mg/dL (80-115); Potassium 3.8 mmol/L (3.5-5.1); Protein, Total 7.4 g/dL (5.8-8.1); Sodium 129 mmol/L (136-145)
[2021-01-12] MEDS: Famotidine 20 MG TAB PO SCH ×2 (08:51→21:34)
[2021-01-12] MEDS: Aspirin Chewable 81 MG TAB PO SCH (08:52)
[2021-01-12] MEDS: Gabapentin 100 MG CAP PO SCH ×3 (08:52→21:33)
[2021-01-12] MEDS: Carvedilol 6.25 MG TAB PO SCH ×2 (08:52→21:33)
[2021-01-12] MEDS: Zinc Sulfate 220 MG CAP PO SCH (08:52)
[2021-01-12] MEDS: Thiamine 100 MG TAB PO SCH (08:52)
[2021-01-12] MEDS: Cyanocobalamin (Vitamin B-12) 1,000 MCG TAB PO SCH (08:53)
[2021-01-12] MEDS: Folic Acid 1 MG TAB PO SCH (08:53)
[2021-01-12] MEDS: Enoxaparin Sodium 30 MG/0.3 ML SYRINGE SC SCH (08:53)
[2021-01-12 11:14] LABS: Creatinine, Urine Less than 20.00 mg/dL (63-166); Protein, Urine Random Quant 22 mg/dL (1-14); Sodium, Urine 88 mmol/L (Not Available); Urea Nitrogen, Random Urine 59 mg/dl
[2021-01-12] MEDS: Promethazine 25 MG TAB PO PRN ×2 (15:24→21:33)
[2021-01-12] MEDS: Doxazosin Mesylate 1 MG TAB PO SCH (21:35)
[2021-01-13] MEDS ORDERED: Dextrose 50% Abboject 50 ML SYRINGE SLOW IVP PRN (00:09)
[2021-01-13] MEDS ORDERED: Dextrose 5% in Water 1,000 ML IV PRN (00:09)
[2021-01-13] MEDS ORDERED: HumaLOG 300 UNITS/3 ML VIAL SC PRN (00:09)
[2021-01-13 04:39] LABS: ALT (SGPT) 18 U/L (8-55); AST (SGOT) 29 U/L (5-34); Albumin 3.1 g/dL (3.4-4.8); Alkaline Phosphatase 197 U/L (40-110); Anion Gap 19 mmol/L (10-20); BUN (Urea Nitrogen) 21 mg/dL (8.4-25.7); Bilirubin, Total 1.1 mg/dL (0.2-1.2); Calc. Creatinine Clearance 56 mL/min (70-130); Calcium 8.6 mg/dL (7.8-10.44); Carbon Dioxide 21 mmol/L (23-31); Chloride 95 mmol/L (98-107); Globulin 3.9 g/dL (2.4-3.5); Glucose 140 mg/dL (80-115); Potassium 3.6 mmol/L (3.5-5.1); Sodium 131 mmol/L (136-145)
[2021-01-13] MEDS: Sodium Bicarbonate Tab 325 MG TAB PO SCH ×4 (05:23→23:27)
[2021-01-13] MEDS: HumaLOG 300 UNITS/3 ML VIAL SC PRN ×3 (06:45→17:43)
[2021-01-13] MEDS: Enoxaparin Sodium 30 MG/0.3 ML SYRINGE SC SCH (09:37)
[2021-01-13] MEDS: Aspirin Chewable 81 MG TAB PO SCH (09:38)
[2021-01-13] MEDS: cefTRIAXone\\ROCEPHIN 1 GM in Sodium Chloride 0.9% 100 ML IVPB SCH (09:38)
[2021-01-13] MEDS: Thiamine 100 MG TAB PO SCH (09:38)
[2021-01-13] MEDS: Carvedilol 25 MG TAB PO SCH ×2 (09:38→20:49)
[2021-01-13] MEDS: Cyanocobalamin (Vitamin B-12) 1,000 MCG TAB PO SCH (09:39)
[2021-01-13] MEDS: Folic Acid 1 MG TAB PO SCH (09:39)
[2021-01-13] MEDS: Famotidine 20 MG TAB PO SCH ×2 (09:39→20:49)
[2021-01-13] MEDS: Zinc Sulfate 220 MG CAP PO SCH (09:40)
[2021-01-13] MEDS: Gabapentin 100 MG CAP PO SCH ×3 (09:40→20:48)
[2021-01-13] MEDS: Saccharomyces boulardii 250 MG CAP PO SCH (09:40)
[2021-01-13] MEDS ORDERED: Morphine 2 MG/ML VIAL SLOW IVP PRN (16:23)
[2021-01-13] MEDS: Doxazosin Mesylate 1 MG TAB PO SCH (20:48)
[2021-01-14] MEDS: Sodium Bicarbonate Tab 325 MG TAB PO SCH ×3 (05:52→18:09)
[2021-01-14] MEDS: HumaLOG 300 UNITS/3 ML VIAL SC PRN (05:56)
[2021-01-14 07:00] LABS: Albumin 3.2 g/dL (3.4-4.8); Anion Gap 17 mmol/L (10-20); BUN (Urea Nitrogen) 27 mg/dL (8.4-25.7); BUN/Creatinine Ratio 17.31; Calc. Creatinine Clearance 63 mL/min (70-130); Calcium 8.6 mg/dL (7.8-10.44); Carbon Dioxide 24 mmol/L (23-31); Chloride 96 mmol/L (98-107); Glucose 188 mg/dL (80-115); Phosphorus 3.4 mg/dL (2.3-4.7); Potassium 3.5 mmol/L (3.5-5.1); Sodium 133 mmol/L (136-145)
[2021-01-14 07:11] LABS: Hemoglobin 12.4 g/dL (14.0-18.0); Mean Corpuscular HGB CONC 32.9 g/dL (32.0-36.0); Mean Corpuscular Hemoglobin 30.9 pg (27.0-31.0); Mean Corpuscular Volume 94.1 fL (78.0-98.0); Mean Platelet Volume 7.7 fL (7.4-10.4); Platelet Count 113 thou/uL (130-400); RBC Distribution Width 13.8 % (11.5-14.5); White Blood Cell (WBC) Count 4.8 thou/uL (4.8-10.8)
[2021-01-14] MEDS ORDERED: Potassium Chloride 20 MEQ TAB PO SCH (07:30)
[2021-01-14] MEDS: cefTRIAXone\\ROCEPHIN 1 GM in Sodium Chloride 0.9% 100 ML IVPB SCH (08:33)
[2021-01-14] MEDS: Enoxaparin Sodium 30 MG/0.3 ML SYRINGE SC SCH (08:33)
[2021-01-14] MEDS: Cyanocobalamin (Vitamin B-12) 1,000 MCG TAB PO SCH (08:33)
[2021-01-14] MEDS: Folic Acid 1 MG TAB PO SCH (08:34)
[2021-01-14] MEDS: Famotidine 20 MG TAB PO SCH ×2 (08:34→20:26)
[2021-01-14] MEDS: Gabapentin 100 MG CAP PO SCH ×3 (08:34→20:25)
[2021-01-14] MEDS: Saccharomyces boulardii 250 MG CAP PO SCH (08:35)
[2021-01-14] MEDS: Thiamine 100 MG TAB PO SCH (08:35)
[2021-01-14] MEDS: Carvedilol 25 MG TAB PO SCH ×2 (08:35→20:26)
[2021-01-14] MEDS: Zinc Sulfate 220 MG CAP PO SCH (08:35)
[2021-01-14] MEDS: Aspirin Chewable 81 MG TAB PO SCH (08:36)
[2021-01-14] MEDS ORDERED: Polyethylene Glycol 3350 17 GM Packet PO PRN (17:53)
[2021-01-14] MEDS: Docusate 100 MG CAP PO SCH (20:25)
[2021-01-14] MEDS: Doxazosin Mesylate 1 MG TAB PO SCH (20:25)
[2021-01-14] MEDS: Cefdinir 300 MG CAP PO SCH (20:25)
[2021-01-15] MEDS: Sodium Bicarbonate Tab 325 MG TAB PO SCH ×4 (00:05→16:54)
[2021-01-15 05:12] LABS: Albumin 3.1 g/dL (3.4-4.8); Anion Gap 17 mmol/L (10-20); BUN (Urea Nitrogen) 24 mg/dL (8.4-25.7); BUN/Creatinine Ratio 15.38; Calc. Creatinine Clearance 63 mL/min (70-130); Calcium 8.7 mg/dL (7.8-10.44); Carbon Dioxide 25 mmol/L (23-31); Chloride 98 mmol/L (98-107); Glucose 203 mg/dL (80-115); Potassium 3.5 mmol/L (3.5-5.1); Sodium 136 mmol/L (136-145)
[2021-01-15] MEDS: HumaLOG 300 UNITS/3 ML VIAL SC PRN (06:45)
[2021-01-15] MEDS: Docusate 100 MG CAP PO SCH (09:00)
[2021-01-15] MEDS: Famotidine 20 MG TAB PO SCH (09:00)
[2021-01-15] MEDS: Aspirin Chewable 81 MG TAB PO SCH (09:00)
[2021-01-15] MEDS: Saccharomyces boulardii 250 MG CAP PO SCH (09:00)
[2021-01-15] MEDS ORDERED: Polyethylene Glycol 3350 17 GM Packet PO SCH (09:00)
[2021-01-15] MEDS: Gabapentin 100 MG CAP PO SCH ×2 (09:00→14:06)
[2021-01-15] MEDS: Cefdinir 300 MG CAP PO SCH (09:00)
[2021-01-15] MEDS ORDERED: Enoxaparin Sodium 40 MG/0.4 ML SYRINGE SC SCH (09:00)
[2021-01-15] MEDS: Cyanocobalamin (Vitamin B-12) 1,000 MCG TAB PO SCH (09:01)
[2021-01-15] MEDS: Folic Acid 1 MG TAB PO SCH (09:01)
[2021-01-15] MEDS: Carvedilol 25 MG TAB PO SCH (09:01)
[2021-01-15] MEDS: Zinc Sulfate 220 MG CAP PO SCH (09:01)
[2021-01-15] MEDS: Thiamine 100 MG TAB PO SCH (09:01)
[2021-01-15 16:54] VITALS: BP 134/85; TEMP 98.1
== END 2021-01-15 17:50 | disposition home or self-care (01) | DRG 291 ==
LOC: ERS 21:08 → 2NO 23:39
PROVIDERS: ADMIT Internal Medicine; ATTEND Internal Medicine
DX: I13.0 Hypertensive heart and chronic kidney disease with heart failure and stage 1 through stage 4 chronic kidney disease, or unspecified chronic kidney disease (principal); I50.23 Acute on chronic systolic (congestive) heart failure; E87.1 Hypo-osmolality and hyponatremia; N39.0 Urinary tract infection, site not specified; E87.2 Acidosis; N17.9 Acute kidney failure, unspecified; I25.10 Atherosclerotic heart disease of native coronary artery without angina pectoris; E66.9 Obesity, unspecified; F10.10 Alcohol abuse, uncomplicated; E11.22 Type 2 diabetes mellitus with diabetic chronic kidney disease; N18.2 Chronic kidney disease, stage 2 (mild); K70.11 Alcoholic hepatitis with ascites; I25.5 Ischemic cardiomyopathy; N13.9 Obstructive and reflux uropathy, unspecified; K70.9 Alcoholic liver disease, unspecified; E11.42 Type 2 diabetes mellitus with diabetic polyneuropathy; E78.5 Hyperlipidemia, unspecified; F41.9 Anxiety disorder, unspecified; F32.9 Major depressive disorder, single episode, unspecified; Z79.82 Long term (current) use of aspirin; Z79.899 Other long term (current) drug therapy; Z95.5 Presence of coronary angioplasty implant and graft; Z91.19 Patient's noncompliance with other medical treatment and regimen; I25.2 Old myocardial infarction; Z68.30 Body mass index [BMI] 30.0-30.9, adult
CPT/HCPCS: 36415; 36416; 71045; 74177; 76705; 80048; 80053; 80069; 81003; 81015; 82570; 83036; 83690; 83735; 83880; 83930; 83935; 84156; 84300; 84443; 84484; 84540; 84550; 85025; 85027; 87040; 87077; 87086; 87186; 93306; 93923; 96365; 96366; 96368; 96375; C9113; J0696; J1650; J2405; J3411; J3490; J7042; Q0169; U0003; U0005